=== PATIENT | male | born 1955 | race Caucasian/White ===

== ENCOUNTER → 2019-05-03 09:58 | Outpatient (CLI) | payer OTHER, SELFPAY ==
[2019-05-03 11:02] LABS: BUN Creatinine Ratio 17.5 (6-22); Blood Urea Nitrogen 14 mg/dL (9-20); Calcium 9.5 mg/dL (8.4-10.2); Carbon Dioxide 31 mmol/L (22-32); Chloride 101 mmol/L (98-107); Cholesterol 163 mg/dL (140-199); Estimated Glomerular Filt Rate > 60.0 mL/min (>60); Glucose 103 mg/dL (80-110); HDL Cholesterol 49 mg/dL (40-60); HEMOLYSIS < 15 (0-50); LDL Cholesterol Calculated 101 mg/dL (<100); Potassium 4.5 mmol/L (3.4-5.1); Sodium 139 mmol/L (137-145); Triglycerides 65 mg/dL (35-150)
== END ==
PROVIDERS: Visit Provider Internal Medicine Interventional Cardiology
DX: I25.10 Atherosclerotic heart disease of native coronary artery without angina pectoris (principal)
CPT/HCPCS: 36415; 80048; 80061

== ENCOUNTER → 2019-08-22 07:54 | Outpatient (CLI) | payer OTHER, SELFPAY ==
--- NOTE | 2019-08-22 07:55 | DI.US.S_ITS ---
PROCEDURE: US AXILLARY ONLY INDICATIONS: INTERMITTENT LEFT AXILLARY PAIN TECHNIQUE: Real-time focused scanning was performed of the left axilla, with image documentation. COMPARISON: None. FINDINGS: Ultrasound evaluation of the left axilla demonstrates no discrete cystic or solid mass in the area of pain. No abnormal enlarged lymph nodes identified. IMPRESSION: 1. No discrete mass or evidence of lymphadenopathy in the left axilla. Dictated by: Danish Chew M.D. on 08/22/2019 at 16:29 Approved by: Danish Chew M.D. on 08/22/2019 at 16:31
== END ==
PROVIDERS: PCP Nurse Practitioner; Referring Provider Nurse Practitioner; Visit Provider Nurse Practitioner
DX: M79.622 Pain in left upper arm (principal)
CPT/HCPCS: 76882

== ENCOUNTER → 2019-09-14 08:08 | Outpatient (CLI) | payer OTHER, SELFPAY ==
[2019-09-14 08:43] LABS: Add Manual Diff / Slide Review NO; Basophils Absolute Auto 0 /uL (0-100); Basophils Percent Auto 0.6 % (0-2); Eosinophils Absolute Auto 100 /uL (0-450); Eosinophils Percent Auto 1.1 % (2-4); Hematocrit 43.2 % (41-53); Hemoglobin 14.5 g/dL (13.5-17.5); Lymphocytes Absolute Auto 1700 /uL (1100-4500); Lymphocytes Percent Auto 33.9 % (25-40); Mean Corpuscular HGB Conc 33.6 % (30-36); Mean Corpuscular Hemoglobin 30.3 PG (26-34); Mean Corpuscular Volume 90.1 fL (80-100); Monocytes Absolute Auto 500 /uL (0-900); Monocytes Percent Auto 9.8 % (3-14); Neutrophils Absolute Auto 2800 /uL (1500-7000); Neutrophils Percent Auto 54.6 % (50-75); Platelet Count 188 X10^3/uL (150-400); Red Blood Cell Count 4.79 X10^6/uL (4.5-5.9); Red Cell Distribution Width 13.5 % (11.6-14.8); White Blood Cell Count 5.1 X10^3/uL (4.5-11.0)
[2019-09-14 09:45] LABS: Free T3, Triiodothyronine Free 3.24 pg/mL (2.77-5.27); Free T4, Direct Thyroxine 1.01 ng/dL (0.78-2.19)
[2019-09-14 09:57] LABS: Prostate Specific Antigen Scrn 1.58 ng/mL (0.1-4.0)
== END ==
PROVIDERS: PCP Nurse Practitioner; Referring Provider Nurse Practitioner; Visit Provider Nurse Practitioner
DX: Z00.00 Encounter for general adult medical examination without abnormal findings (principal); E78.5 Hyperlipidemia, unspecified; F41.9 Anxiety disorder, unspecified; I48.91 Unspecified atrial fibrillation
CPT/HCPCS: 36415; 84439; 84443; 84481; 85025; G0103

== ENCOUNTER 2019-09-16 10:16 | Emergency (ER) | payer OTHER, SELFPAY ==
[2019-09-16] VITALS (9 sets, daily range): BP systolic 97–168; BP diastolic 53–92; PULSE 60–69; RESP 12–20; TEMP 36.7; O2SAT 94–100
--- NOTE | 2019-09-16 10:28 | DI.RAD.S_ITS ---
PROCEDURE: XR CHEST 1V INDICATIONS: chest pain TECHNIQUE: One view of the chest was acquired. COMPARISON: None. FINDINGS: Surgical changes and devices: None. Lungs and pleura: Lungs are clear. No pleural effusions or pneumothorax. Mediastinum: Mediastinal contours appear normal. Heart size is normal. Bones and chest wall: No suspicious bony lesions. Overlying soft tissues appear unremarkable. IMPRESSION: Normal for age, source of current chest pain symptoms is not seen. Dictated by: Leandro Jorge M.D. on 09/16/2019 at 11:26 Approved by: Leandro Jorge M.D. on 09/16/2019 at 11:26
[2019-09-16 10:36] LABS: Add Manual Diff / Slide Review NO; Basophils Absolute Auto 0 /uL (0-100); Basophils Percent Auto 0.8 % (0-2); Eosinophils Absolute Auto 0 /uL (0-450); Eosinophils Percent Auto 0.5 % (2-4); Hematocrit 46.1 % (41-53); Hemoglobin 15.5 g/dL (13.5-17.5); Lymphocytes Absolute Auto 1300 /uL (1100-4500); Mean Corpuscular HGB Conc 33.7 % (30-36); Mean Corpuscular Hemoglobin 30.4 PG (26-34); Mean Corpuscular Volume 90.2 fL (80-100); Monocytes Absolute Auto 600 /uL (0-900); Monocytes Percent Auto 11.7 % (3-14); Neutrophils Absolute Auto 3200 /uL (1500-7000); Platelet Count 206 X10^3/uL (150-400); Red Blood Cell Count 5.11 X10^6/uL (4.5-5.9); Red Cell Distribution Width 13.3 % (11.6-14.8); White Blood Cell Count 5.2 X10^3/uL (4.5-11.0)
--- NOTE | 2019-09-16 10:37 | ED_ITS ---
HPI - SOB/Dyspnea <Betito MartinezDO sukhwinder - Last Filed: 09/17/19 07:02> General Chief Complaint: Shortness of Breath/Dyspnea Stated Complaint: cardiac issue Time Seen by Provider: 09/16/19 10:21 Source: patient Mode of arrival: Ambulatory Limitations: no limitations History of Present Illness HPI Narrative: 64-year-old male nonsmoker with history of hypertension, hyperlipidemia and coronary artery disease status post coronary stenting in 2014. He has had no provocative testing since 2014. He also had a tachyarrhythmia 0 and received ablation in 2015 or 2016. The majority of his care was obtained in [facility] he recently moved here and has established with [facility]. Patient presents today because of 3 weeks of worsening exercise intolerance and exertional fatigue. He has had some episodes of tingling type anterior chest pain that are not provoked by any exertion. He denies cardiac equivalent such as dizziness, weakness, lightheadedness nor nausea, vomiting or unexplained diaphoresis. He has had no recent travel, history of cancer or blood clot. He routinely exercises and normally swims 5 times per week but for the past few weeks he has had increasing inability to complete his regimen and the worst day was yesterday and his visit today. Onset (ago): week(s) Severity: moderate Consistency/Duration: intermittent Relieving factors: rest Exacerbating factors: exertion Known history of: other Related Data Home oxygen amount: none Home Medications Medication Instructions Recorded Confirmed aspirin 81 mg tablet,delayed 81 mg PO DAILY 07/22/19 09/16/19 release atorvastatin 40 mg tablet 40 mg PO DAILY 07/22/19 09/16/19 coenzyme Q10 200 mg capsule 200 mg PO DAILY 07/22/19 09/16/19 metoprolol succinate 25 mg 25 mg PO DAILY 07/22/19 09/16/19 tablet,extended release 24 hr L-Carnitine 1,000 mg PO DAILY 09/16/19 09/16/19 Previous Rx's Medication Instructions Recorded diph,pertuss(acel),tet vac(PF) 0.5 ml IM ONCE #0.5 ml 08/18/19 varicella-zoster [id number] (PF) 50 0.5 ml IM ONCE #1 each 08/18/19 mcg/0.5 mL IM susp, kit Allergies Allergy/AdvReac Type Severity Reaction Status Date / Time No Known Drug Allergies Allergy Verified 09/16/19 10:28 Review of Systems <Betito Esquivel DO - Last Filed: 09/17/19 07:02> Constitutional Constitutional: Denies chills, Denies fatigue, Denies fever(s), Denies frequent falls, Denies lethargy and Denies weakness Eyes Eyes: Denies change in vision, Denies eye discharge, Denies irritation and Denies loss of vision ENT Ears, Nose, Mouth, and Throat: Denies change in voice, Denies dizziness, Denies neck pain, Denies sore throat and Denies throat swelling Cardiovascular Cardiovascular: Denies chest pain, Denies irregular heart rhythm, Denies lightheadedness, Denies palpitations, Denies dyspnea, Denies dyspnea on exertion and Denies orthopnea Comments: Exertional fatigue Respiratory Respiratory: Denies cough, Denies dyspnea, Denies dyspnea on exertion and Denies wheezing Gastrointestinal Gastrointestinal: Denies abdominal pain, Denies change in bowel habits, Denies diarrhea, Denies nausea and Denies vomiting Genitourinary Genitourinary: Denies hematuria, Denies flank pain, Denies urinary incontinence and Denies urinary urgency Musculoskeletal Musculoskeletal: Denies back pain, Denies muscle weakness, Denies neck pain, Denies numbness and Denies tingling Integumentary/Breasts Skin/Breast: Denies pruritus, Denies erythema, Denies rash and Denies wounds Neurologic Neurologic: Denies behavioral changes, Denies confusion, Denies dizziness, D enies frequent falls, Denies loss of vision, Denies numbness, Denies tingling and Denies weakness Psychiatric Psychiatric: Denies anxiety, Denies behavioral changes, Denies confusion, Denies depression, Denies homicidal ideation and Denies suicidal ideation Endocrine Endocrine: Denies fatigue, Denies flushing and Denies palpitations Hematologic/Lymphatic Hematologic/Lymphatic: Denies easy bruising Allergic/Immunologic Allergic/Immunologic: Denies urticaria, Denies throat swelling and Denies wheezing Patient History <Betito Esquivel DO - Last Filed: 09/17/19 07:02> Medical History Atrial fibrillation (Chronic ~2016) Chicken pox (Resolved) Measles (Resolved) Myocardial infarction (Resolved ~2016) Surgical History Anesthesia (Resolved) History of cardiac radiofrequency ablation (Resolved ~06/10/17) History of heart artery stent (Resolved ~04/26/16) Family History Father History of heart disease Mother Cancer Sister Cancer Grandfather Cancer Grandfather History of heart disease Social History Smoking Status: Never smoker Smoking Status: Never smoker alcohol intake frequency: 0-2 drinks per day Substance Use Type: does not use Exam <Betito Esquivel DO - Last Filed: 09/17/19 07:02> Narrative Exam Narrative: GENERAL: [64] year old patient appears stated age. Well- nourished, well-developed patient, in mild distress. HEAD: Atraumatic. Normocephalic. EYES: Pupils equal round and reactive. Extraocular motions intact. No scleral icterus. No injection or drainage. ENT: Nose without bleeding, purulent drainage. Throat without erythema, tonsillar hypertrophy or exudate. Airway patent. NECK: Trachea midline. Non tender CARDIOVASCULAR: Regular rate and rhythm without murmurs, gallops, or rubs. RESPIRATORY: Clear to auscultation. Breath sounds equal bilaterally. No wheezes, rales, or rhonchi. GASTROINTESTINAL: Abdomen soft, non-tender, nondistended. EXTREMITIES: No edema or joint tenderness. BACK: Nontender without deformity or crepitance. No flank tenderness. NEURO: AOx3. SKIN: No rash or erythema of visible areas Initial Vital Signs Initial Vital Signs: Vital Signs Temperature 98.0 F 09/16/19 10:20 Pulse Rate 68 09/16/19 10:20 Respiratory Rate 18 09/16/19 10:20 Blood Pressure 168/92 H 09/16/19 10:20 Pulse Oximetry 100 09/16/19 10:20 <Jose D Thorpe DO - Last Filed: 09/16/19 13:01> Initial Vital Signs Initial Vital Signs: Vital Signs Temperature 98.0 F 09/16/19 10:20 Pulse Rate 68 09/16/19 10:20 Respiratory Rate 18 09/16/19 10:20 Blood Pressure 168/92 H 09/16/19 10:20 Pulse Oximetry 100 09/16/19 10:20 Course <Betito Esquivel, DO - Last Filed: 09/17/19 07:02> Orders Ordered: Discontinued Medications Nitroglycerin (Nitrostat) 0.4 mg SL [id number] PRN PRN Reason: Chest Pain Last Admin: 09/16/19 11:50 Dose: 0.4 mg Documented by: Admin: 09/16/19 11:43 Dose: 0.4 mg Documented by: Admin: 09/16/19 11:37 Dose: 0.4 mg Documented by: YENNY Consultations Consultation #1: Given the patient's concerning story for developing ischemia a call was placed to Cardiology at [facility] who shares this concern requests transfer given his presentation consistent with unstable angina. She states given normal troponin and nonischemic EKG that the patient does not need to be on heparin, requests discussion with hospitalist Call to hospitalist at [facility] awaiting call from hospitalist at [facility]. Transfer of care to Dr. Thorpe Vital Signs Vital signs: Vital Signs - 8 hr 09/16/19 10:20 09/16/19 11:30 09/16/19 11:37 Temperature 98.0 F Pulse Rate 68 62 62 Respiratory Rate 18 12 Blood Pressure 168/92 H 128/79 Blood Pressure [Left Arm] 128/79 Pulse Oximetry 100 96 09/16/19 11:43 09/16/19 11:50 09/16/19 12:00 Temperature Pulse Rate 69 65 66 Respiratory Rate 19 Blood Pressure 119/77 100/63 Blood Pressure [Left Arm] 99/53 L Pulse Oximetry 94 09/16/19 12:30 Temperature Pulse Rate 62 Respiratory Rate 15 Blood Pressure Blood Pressure [Left Arm] 105/64 Pulse Oximetry 94 <Jose D Thorpe DO - Last Filed: 09/16/19 13:01> Orders Ordered: Discontinued Medications Nitroglycerin (Nitrostat) 0.4 mg SL [id number] PRN PRN Reason: Chest Pain Last Admin: 09/16/19 11:50 Dose: 0.4 mg Documented by: Admin: 09/16/19 11:43 Dose: 0.4 mg Documented by: Admin: 09/16/19 11:37 Dose: 0.4 mg Documented by: [email or web address] Vital Signs Vital signs: Vital Signs - 8 hr 09/16/19 10:20 09/16/19 11:30 09/16/19 11:37 Temperature 98.0 F Pulse Rate 68 62 62 Respiratory Rate 18 12 Blood Pressure 168/92 H 128/79 Blood Pressure [Left Arm] 128/79 Pulse Oximetry 100 96 09/16/19 11:43 09/16/19 11:50 09/16/19 12:00 Temperature Pulse Rate 69 65 66 Respiratory Rate 19 Blood Pressure 119/77 100/63 Blood Pressure [Left Arm] 99/53 L Pulse Oximetry 94 09/16/19 12:30 Temperature Pulse Rate 62 Respiratory Rate 15 Blood Pressure Blood Pressure [Left Arm] 105/64 Pulse Oximetry 94 MDM - SOB/Dyspnea <Betito Esquivel DO - Last Filed: 09/17/19 07:02> Lab Data Result diagrams: 09/16/19 10:23 09/16/19 10:23 Labs: Lab Results 09/16/19 09/16/19 09/16/19 Range/Units 10:23 10:23 10:23 WBC 5.2 (4.5-11.0) X10^3/uL RBC 5.11 (4.5-5.9) X10^6/uL Hgb 15.5 (13.5-17.5) g/dL Hct 46.1 (41-53) % MCV 90.2 (80-100) fL MCH 30.4 (26-34) PG MCHC 33.7 (30-36) % RDW 13.3 (11.6-14.8) % Plt Count 206 (150-400) X10^3/uL Neut % (Auto) 62.0 (50-75) % Lymph % (Auto) 25.0 (25-40) % [place] % (Auto) 11.7 (3-14) % Eos % (Auto) 0.5 L (2-4) % Baso % (Auto) 0.8 (0-2) % Neut # (Auto) 3200 (6759-4194) /uL Lymph # (Auto) 1300 (5325-4076) /uL [place] # (Auto) 600 (0-900) /uL Eos # (Auto) 0 (0-450) /uL Baso # (Auto) 0 (0-100) /uL PT 12.9 H (10.1-12.7) SECONDS INR 1.1 (0.9-1.3) APTT 33 (26.4-36.2) SECONDS Sodium 139 (137-145) mmol/L Potassium 4.0 (3.4-5.1) mmol/L Chloride 103 (98-107) mmol/L Carbon Dioxide 27 (22-32) mmol/L BUN 18 (9-20) mg/dL Creatinine 0.80 (0.66-1.25) mg/dL Estimated GFR > 60.0 (>60) mL/min BUN/Creatinine Ratio 22.5 H (6-22) Glucose 100 (80-110) mg/dL Calcium 9.6 (8.4-10.2) mg/dL Magnesium 2.3 (1.6-2.3) mg/dL Total Bilirubin 1.3 (0.2-1.3) mg/dL AST 26 (17-59) IU/L ALT 27 (<50) IU/L Alkaline Phosphatase 94 (38-126) U/L Total Creatine Kinase 56 (55-170) U/L CK-MB (CK-2) TNP CK-MB (CK-2) Rel Index TNP Troponin I < 0.012 (0.01-0.034) ng/mL NT-Pro-B Natriuret Pep 27 (<125) pg/mL Total Protein 8.1 (6.3-8.2) g/dL Albumin 4.9 (3.5-5.0) g/dL Globulin 3.2 (1.7-4.1) g/dL Albumin/Globulin Ratio 1.5 (1.0-2.8) Lipase 200 (23-300) U/L ECG Data Attestation: I personally reviewed and interpreted this ECG as follows: Interpretation: EKG is normal sinus rhythm rate [ 92] and free of any signs of ischemia or ectopy. No ST segmental elevation or depression. No T wave inversions <Jose D Thorpe DO - Last Filed: 09/16/19 13:01> Lab Data Labs: Lab Results 09/16/19 09/16/19 09/16/19 Range/Units 10:23 10:23 10:23 WBC 5.2 (4.5-11.0) X10^3/uL RBC 5.11 (4.5-5.9) X10^6/uL Hgb 15.5 (13.5-17.5) g/dL Hct 46.1 (41-53) % MCV 90.2 (80-100) fL MCH 30.4 (26-34) PG MCHC 33.7 (30-36) % RDW 13.3 (11.6-14.8) % Plt Count 206 (150-400) X10^3/uL Neut % (Auto) 62.0 (50-75) % Lymph % (Auto) 25.0 (25-40) % [place] % (Auto) 11.7 (3-14) % Eos % (Auto) 0.5 L (2-4) % Baso % (Auto) 0.8 (0-2) % Neut # (Auto) 3200 (8034-1213) /uL Lymph # (Auto) 1300 (0453-8182) /uL [place] # (Auto) 600 (0-900) /uL Eos # (Auto) 0 (0-450) /uL Baso # (Auto) 0 (0-100) /uL PT 12.9 H (10.1-12.7) SECONDS INR 1.1 (0.9-1.3) APTT 33 (26.4-36.2) SECONDS Sodium 139 (137-145) mmol/L Potassium 4.0 (3.4-5.1) mmol/L Chloride 103 (98-107) mmol/L Carbon Dioxide 27 (22-32) mmol/L BUN 18 (9-20) mg/dL Creatinine 0.80 (0.66-1.25) mg/dL Estimated GFR > 60.0 (>60) mL/min BUN/Creatinine Ratio 22.5 H (6-22) Glucose 100 (80-110) mg/dL Calcium 9.6 (8.4-10.2) mg/dL Magnesium 2.3 (1.6-2.3) mg/dL Total Bilirubin 1.3 (0.2-1.3) mg/dL AST 26 (17-59) IU/L ALT 27 (<50) IU/L Alkaline Phosphatase 94 (38-126) U/L Total Creatine Kinase 56 (55-170) U/L CK-MB (CK-2) TNP CK-MB (CK-2) Rel Index TNP Troponin I < 0.012 (0.01-0.034) ng/mL NT-Pro-B Natriuret Pep 27 (<125) pg/mL Total Protein 8.1 (6.3-8.2) g/dL Albumin 4.9 (3.5-5.0) g/dL Globulin 3.2 (1.7-4.1) g/dL Albumin/Globulin Ratio 1.5 (1.0-2.8) Lipase 200 (23-300) U/L MDM Narrative Medical decision making narrative: Dr thorpe: Received turned over from Dr Esquivel. Reviewed patient's history and physical. Introduce myself to the patient. Discussed the case with Dr. Vega hospitalist at [facility] who accepts the patient in transfer per recommendations of cardiology. Discussed the transfer with the patient. Patient is stable for transport. Discharge Plan Departure Patient Disposition: [facility] Clinical Impression: Angina pectoris, unstable Discharge Date/Time: 09/16/19 14:35 Prescriptions: No Action atorvastatin 40 mg tablet 40 mg PO DAILY RF: 0 metoprolol succinate 25 mg tablet extended release 24 hr 25 mg PO DAILY RF: 0 aspirin [Adult Aspirin Regimen] 81 mg tablet,delayed release (DR/EC) 81 mg PO DAILY RF: 0 coenzyme Q10 200 mg capsule 200 mg PO DAILY RF: 0 Shingrix (PF) 50 mcg/0.5 mL suspension for reconstitution 0.5 ml IM ONCE Qty: 1 RF: 0 Adacel(Tdap Adolesn/Adult)(PF) 2 Lf-(2.5-5-3-5 mcg)-5Lf/0.5 mL suspension 0.5 ml IM ONCE Qty: 0.5 RF: 0 L-Carnitine 1,000 mg 1,000 mg PO DAILY RF: 0 Referrals: Rosa Mathews ARNP [Primary Care Provider] -
[2019-09-16 10:38] LABS: INR 1.1 (0.9-1.3); Prothrombin Time 12.9 SECONDS (10.1-12.7)
[2019-09-16 10:40] LABS: PTT Partial Thromboplastin Tim 33 SECONDS (26.4-36.2)
[2019-09-16 10:42] LABS: Alanine Aminotransferase 27 IU/L (<50); Albumin 4.9 g/dL (3.5-5.0); Albumin Globulin Ratio 1.5 (1.0-2.8); Alkaline Phosphatase 94 U/L (38-126); Aspartate Aminotransferase 26 IU/L (17-59); BUN Creatinine Ratio 22.5 (6-22); Bilirubin Total 1.3 mg/dL (0.2-1.3); Blood Urea Nitrogen 18 mg/dL (9-20); Calcium 9.6 mg/dL (8.4-10.2); Carbon Dioxide 27 mmol/L (22-32); Chloride 103 mmol/L (98-107); Creatine Kinase 56 U/L (55-170); Estimated Glomerular Filt Rate > 60.0 mL/min (>60); Globulin 3.2 g/dL (1.7-4.1); Glucose 100 mg/dL (80-110); HEMOLYSIS 18 (0-50); Lipase 200 U/L (23-300); Magnesium 2.3 mg/dL (1.6-2.3); Sodium 139 mmol/L (137-145); Total Protein 8.1 g/dL (6.3-8.2)
[2019-09-16 10:53] LABS: Troponin I < 0.012 ng/mL (0.01-0.034)
[2019-09-16 11:03] LABS: NT-proBNP (BNP-Adult 18+) 27 pg/mL (<125)
[2019-09-16] MEDS: NITROGLYCERIN 0.4 MG SL TAB SL ×3 (11:37→11:50)
--- NOTE | 2019-09-16 12:21 | PC.NURSE ---
Notified DR Esquivel chest pain not relieved by nitro, no new orders received..
--- NOTE | 2019-09-16 12:23 | PC.NURSE ---
Pt w/ progressive fatigue. Denies chest pain upon admission. No acute distress. [place]/warm/dry.
--- NOTE | 2019-09-16 14:33 | PC.NURSE ---
Chest pain has been at a 112 out of [address] Esquivel and Dr Thorpe are aware.
== END 2019-09-16 14:35 | disposition short-term general hospital (02) ==
PROVIDERS: Emergency Medicine; Emergency Provider Emergency Medicine; PCP Nurse Practitioner
DX: I25.110 Atherosclerotic heart disease of native coronary artery with unstable angina pectoris (principal); I10 Essential (primary) hypertension; E78.5 Hyperlipidemia, unspecified; Z95.5 Presence of coronary angioplasty implant and graft
CPT/HCPCS: 36415; 71045; 80053; 82550; 83690; 83735; 83880; 84484; 85025; 85610; 85730; 93005; 99285

== ENCOUNTER → 2020-11-27 09:01 | Outpatient (CLI) | payer OTHER, SELFPAY ==
[2020-11-27 10:27] LABS: Alanine Aminotransferase 23 IU/L (<50); Albumin 4.6 g/dL (3.5-5.0); Albumin Globulin Ratio 1.6 (1.0-2.8); Alkaline Phosphatase 103 U/L (38-126); Aspartate Aminotransferase 23 IU/L (17-59); Bilirubin Total 1.3 mg/dL (0.2-1.3); Blood Urea Nitrogen 17 mg/dL (9-20); Calcium 9.8 mg/dL (8.4-10.2); Carbon Dioxide 29 mmol/L (22-32); Chloride 100 mmol/L (98-107); Cholesterol 188 mg/dL (140-199); Estimated Glomerular Filt Rate > 60.0 mL/min (>60); Globulin 2.8 g/dL (1.7-4.1); Glucose 87 mg/dL (80-110); HDL Cholesterol 44 mg/dL (40-60); HEMOLYSIS < 15 (0-50); LDL Cholesterol Calculated 125 mg/dL (<100); Potassium 4.6 mmol/L (3.4-5.1); Sodium 139 mmol/L (137-145); Total Protein 7.4 g/dL (6.3-8.2); Triglycerides 93 mg/dL (35-150)
== END ==
PROVIDERS: PCP Nurse Practitioner; Referring Provider Internal Medicine; Visit Provider Internal Medicine
DX: I25.10 Atherosclerotic heart disease of native coronary artery without angina pectoris (principal); E78.2 Mixed hyperlipidemia
CPT/HCPCS: 36415; 80053; 80061

== ENCOUNTER → 2020-11-30 16:33 | Outpatient (CLI) | payer OTHER, SELFPAY ==
--- NOTE | 2020-11-30 16:35 | DI.RAD.S_ITS ---
PROCEDURE: XR CHEST 2V INDICATIONS: chest pain TECHNIQUE: 2 views of the chest were acquired. COMPARISON: [facility], , XR CHEST 1V, 09/16/2019, 11:00. FINDINGS: Surgical changes and devices: None. Lungs and pleura: Lungs are clear. The lungs are hyperexpanded. No pleural effusions or pneumothorax. Mediastinum: Mediastinal contours are normal. Heart size is normal. Bones and chest wall: No suspicious bony abnormalities. Soft tissues appear unremarkable. IMPRESSION: No acute cardiopulmonary abnormality Dictated by: Abdiel Edmond M.D. on 11/30/2020 at 21:09 Approved by: Abdiel Edmond M.D. on 11/30/2020 at 21:09
[2020-11-30 17:12] LABS: Appearance Urine UA CLEAR; Bilirubin Urine UA NEGATIVE (NEGATIVE); Color Urine UA YELLOW; Glucose Urine UA NEGATIVE (Negative); Ketones Urine UA NEGATIVE (NEGATIVE); Leukocyte Esterase Urine UA NEGATIVE (NEGATIVE); Nitrite Urine UA NEGATIVE (Negative); Occult Blood Urine UA TRACE-LYSED (Negative); Protein Urine UA NEGATIVE (Negative); Specific Gravity Urine UA 1.015 (1.000-1.035); Urobilinogen Urine UA 0.2 E.U./dL (0.2)
[2020-11-30 17:23] LABS: Add Manual Diff / Slide Review NO; Basophils Absolute Auto 0 /uL (0-100); Basophils Percent Auto 0.7 % (0-2); Eosinophils Absolute Auto 100 /uL (0-450); Eosinophils Percent Auto 1.1 % (2-4); Hematocrit 43.1 % (41-53); Hemoglobin 14.7 g/dL (13.5-17.5); Lymphocytes Absolute Auto 1700 /uL (1100-4500); Lymphocytes Percent Auto 25.8 % (25-40); Mean Corpuscular Hemoglobin 30.6 PG (26-34); Monocytes Absolute Auto 900 /uL (0-900); Monocytes Percent Auto 13.5 % (3-14); Neutrophils Absolute Auto 3900 /uL (1500-7000); Neutrophils Percent Auto 58.9 % (50-75); Platelet Count 186 X10^3/uL (150-400); Red Blood Cell Count 4.79 X10^6/uL (4.5-5.9); Red Cell Distribution Width 13.3 % (11.6-14.8); White Blood Cell Count 6.6 X10^3/uL (4.5-11.0)
[2020-11-30 17:44] LABS: Free T4, Direct Thyroxine 1.15 ng/dL (0.78-2.19)
[2020-11-30 17:57] LABS: Prostate Specific Antigen 2.37 ng/mL (0.10-4.00)
[2020-11-30 17:58] LABS: Thyroid Stimulating Hormone 2.61 uIU/mL (0.47-4.68)
== END ==
PROVIDERS: PCP Nurse Practitioner; Referring Provider Registered Nurse; Visit Provider Registered Nurse
DX: R07.9 Chest pain, unspecified (principal); N41.1 Chronic prostatitis; R53.83 Other fatigue
CPT/HCPCS: 36415; 71046; 81003; 84153; 84439; 84443; 85025

== ENCOUNTER → 2021-05-31 12:37 | Outpatient (CLI) | payer OTHER, SELFPAY ==
[2021-05-31] MEDS: COVID-19 VACC #3, MRNA(MOD) 50 MCG/0.25 ML VIAL IM (12:42)
== END ==
PROVIDERS: PCP Nurse Practitioner; Visit Provider Internal Medicine
DX: Z23 Encounter for immunization (principal)
CPT/HCPCS: 0013A; 91301

== ENCOUNTER → 2021-11-08 08:34 | Outpatient (CLI) | payer OTHER, SELFPAY ==
[2021-11-08 10:26] LABS: Alanine Aminotransferase 28 IU/L (<50); Albumin 4.5 g/dL (3.5-5.0); Albumin Globulin Ratio 1.8 (1.0-2.8); Alkaline Phosphatase 72 U/L (38-126); Aspartate Aminotransferase 25 IU/L (17-59); BUN Creatinine Ratio 24.3 (6-22); Bilirubin Total 0.6 mg/dL (0.2-1.3); Blood Urea Nitrogen 18 mg/dL (9-20); Carbon Dioxide 29 mmol/L (22-32); Chloride 103 mmol/L (98-107); Cholesterol 146 mg/dL (140-199); Estimated Glomerular Filt Rate > 60 mL/min (>60); Globulin 2.5 g/dL (1.7-4.1); Glucose 94 mg/dL (80-110); HDL Cholesterol 44 mg/dL (40-60); HEMOLYSIS < 15 (0-50); LDL Cholesterol Calculated 89 mg/dL (<100); Potassium 4.8 mmol/L (3.4-5.1); Sodium 140 mmol/L (137-145); Triglycerides 64 mg/dL (35-150)
== END ==
PROVIDERS: PCP Nurse Practitioner; Referring Provider Internal Medicine; Visit Provider Internal Medicine
DX: I25.10 Atherosclerotic heart disease of native coronary artery without angina pectoris (principal)
CPT/HCPCS: 36415; 80053; 80061

== ENCOUNTER → 2022-01-14 08:02 | Outpatient (CLI) | payer OTHER, SELFPAY ==
[2022-01-14 09:47] LABS: Hematocrit 39.2 % (41-53); Hemoglobin 13.5 g/dL (13.5-17.5); Mean Corpuscular HGB Conc 34.5 % (30-36); Mean Corpuscular Hemoglobin 30.5 PG (26-34); Mean Corpuscular Volume 88.5 fL (80-100); Platelet Count 176 X10^3/uL (150-400); Red Blood Cell Count 4.43 X10^6/uL (4.5-5.9); Red Cell Distribution Width 13.4 % (11.6-14.8); White Blood Cell Count 4.9 X10^3/uL (4.5-11.0)
[2022-01-14 10:09] LABS: Anisocytosis 1+; Neutrophils Absolute Manual 2352 /uL (3000-5900); Total Cells Counted 100
[2022-01-14 10:20] LABS: Alanine Aminotransferase 47 IU/L (<50); Albumin 4.1 g/dL (3.5-5.0); Albumin Globulin Ratio 1.5 (1.0-2.8); Alkaline Phosphatase 58 U/L (38-126); Aspartate Aminotransferase 38 IU/L (17-59); BUN Creatinine Ratio 31.5 (6-22); Bilirubin Total 0.5 mg/dL (0.2-1.3); Blood Urea Nitrogen 23 mg/dL (9-20); Calcium 8.5 mg/dL (8.4-10.2); Carbon Dioxide 26 mmol/L (22-32); Chloride 106 mmol/L (98-107); Cholesterol 152 mg/dL (140-199); Estimated Glomerular Filt Rate > 60 mL/min (>60); Globulin 2.7 g/dL (1.7-4.1); Glucose 89 mg/dL (80-110); HDL Cholesterol 45 mg/dL (40-60); HEMOLYSIS < 15 (0-50); LDL Cholesterol Calculated 96 mg/dL (<100); Potassium 4.3 mmol/L (3.4-5.1); Sodium 139 mmol/L (137-145); Total Protein 6.8 g/dL (6.3-8.2); Triglycerides 57 mg/dL (35-150)
[2022-01-14 10:36] LABS: Free T3, Triiodothyronine Free 3.01 pg/mL (2.77-5.27); Free T4, Direct Thyroxine 0.83 ng/dL (0.78-2.19)
[2022-01-14 10:49] LABS: Thyroid Stimulating Hormone 2.59 uIU/mL (0.47-4.68)
== END ==
PROVIDERS: PCP Nurse Practitioner; Referring Provider Internal Medicine; Visit Provider Internal Medicine
DX: I25.10 Atherosclerotic heart disease of native coronary artery without angina pectoris (principal); E78.2 Mixed hyperlipidemia; F41.8 Other specified anxiety disorders; I48.91 Unspecified atrial fibrillation; R53.83 Other fatigue; Z00.00 Encounter for general adult medical examination without abnormal findings; Z79.899 Other long term (current) drug therapy
CPT/HCPCS: 36415; 80053; 80061; 84153; 84439; 84443; 84481; 85025

== ENCOUNTER → 2022-03-03 07:53 | Outpatient (CLI) | payer OTHER, SELFPAY ==
[2022-03-03 09:06] LABS: Cholesterol 118 mg/dL (140-199); HDL Cholesterol 33 mg/dL (40-60); LDL Cholesterol Calculated 72 mg/dL (<100); Triglycerides 64 mg/dL (35-150)
== END ==
PROVIDERS: PCP Nurse Practitioner; Referring Provider Internal Medicine; Visit Provider Internal Medicine
DX: E78.2 Mixed hyperlipidemia (principal)
CPT/HCPCS: 36415; 80061

== ENCOUNTER 2023-01-18 04:13 | Emergency (ER) | payer MEDICARE, OTHER, SELFPAY ==
[2023-01-18] VITALS (8 sets, daily range): BP systolic 112–161; BP diastolic 56–96; PULSE 64–69; RESP 13–26; TEMP 36.7; O2SAT 93–98; BMI 23.2
--- NOTE | 2023-01-18 04:18 | ED_ITS ---
HPI - General Adult <Betito Esquivel - Last Filed: 01/20/23 07:39> General Chief complaint: Abdominal Pain Stated complaint: RLQ abd pain w/ nausea Time Seen by Provider: 01/18/23 04:16 History of Present Illness HPI narrative: 67-year-old male nonsmoker with history of kidney stones, hyperlipidemia, atrial fibrillation, coronary artery disease presents by EMS for evaluation of sudden- onset right lower quadrant pain with radiation to his back. He states the pain was sharp and stabbing and unrelenting, waking him up a few hours before arrival. He states that it was relatively persistent but seemed to intensify in waves. He denies the ability to find any position of comfort and states there is no obvious provocation or palliation. He admits to some nausea and vomiting. He was given fentanyl and Zofran by EMS and feels much better on his arrival. He denies any diarrhea but states he has had some constipation lately, stating that he would eaten some cheese which can do this. He denies any dysuria, frequency or urgency. Related Data Home Medications Medication Instructions Recorded Confirmed aspirin 81 mg tablet,delayed 81 mg PO DAILY 07/22/19 12/24/21 release (Adult Aspirin Regimen) coenzyme Q10 200 mg capsule 200 mg PO DAILY 07/22/19 12/24/21 L-Carnitine 1,000 mg PO DAILY 09/16/19 12/24/21 cholecalciferol (vitamin D3) 250 250 mcg PO DAILY 01/09/21 12/24/21 mcg (10,000 unit) capsule melatonin 10 mg capsule 10 mg PO TID 01/09/21 12/24/21 tumeric 1,500 mg PO .qd 01/09/21 12/24/21 vitamin K2 100 mcg capsule 100 mcg PO DAILY 01/09/21 12/24/21 rosuvastatin 40 mg tablet (Crestor) 40 mg PO DAILY 12/24/21 12/24/21 ezetimibe 10 mg tablet 10 mg PO DAILY Get LDL under 70 06/23/22 06/23/22 Previous Rx's Medication Instructions Recorded citalopram 20 mg tablet 20 mg PO DAILY #90 tabs 09/03/22 metoprolol succinate 25 mg 25 mg PO DAILY #90 tabs 09/03/22 tablet,extended release 24 hr ondansetron 4 mg disintegrating 4 mg PO Q6H PRN nausea and 01/18/23 tablet vomiting #14 tabs tamsulosin 0.4 mg capsule (Flomax) 0.4 mg PO DAILY #30 caps 01/18/23 hydrocodone 5 mg-acetaminophen 325 2 tab PO Q6H PRN pain #20 tabs 01/19/23 mg tablet Allergies Allergy/AdvReac Type Severity Reaction Status Date / Time No Known Drug Allergies Allergy Verified 06/23/22 08:54 Review of Systems <Betito Esquivel DO - Last Filed: 01/20/23 07:39> Review of Systems Narrative: GENERAL: Denies chills, fatigue, malaise, fever, sweats. HEENT: Denies sinus pain, ear pain, sore throat, difficulty swallowing, dizziness. RESPIRATORY: Denies dyspnea, cough, wheezing, hemoptysis, sputum. CARDIOVASCULAR: Denies chest pain, palpitations, orthopnea, edema, GASTROINTESTINAL: See HPI : Denies dysuria, frequency, incontinence, hematuria, urinary retention. MUSCULOSKELETAL: denies weakness, joint pain, or bony pain SKIN: Denies rash, skin lesions, or other NEUROLOGIC: Denies weakness, headache, numbness, change in speech, confusion, seizures, incoordination. PSYCHIATRIC: No concerning psychosocial issues. 12 point review of systems is negative except for those stated above Patient History <Betito Esquivel DO - Last Filed: 01/20/23 07:39> Medical History Anxiety Atrial fibrillation (~2015) Chest pain Chest pain Chicken pox Depression with anxiety Fatigue Measles Mixed hypercholesterolemia and hypertriglyceridemia Myocardial infarction (~2015) Paresthesia of both feet Surgical History Anesthesia History of cardiac radiofrequency ablation (~06/10/17) History of heart artery stent (~04/26/16) Family History Father History of heart disease Mother Cancer Sister Cancer Grandfather Cancer Grandfather History of heart disease Social History Smoking Status: Never smoker Smoking Status: Never smoker alcohol intake frequency: 0-2 drinks per day Substance Use Type: does not use Exam <DO Susana Santamaria Last Filed: 01/20/23 07:39> Narrative Exam Narrative: GENERAL: [67] year old patient appears stated age. Well-developed patient, in mild distress. HEAD: Atraumatic. Normocephalic. EYES: Pupils equal round and reactive. Extraocular motions intact. No scleral icterus. No injection or drainage. ENT: Nose without bleeding, purulent drainage. Throat without erythema, tonsillar hypertrophy or exudate. Airway patent. NECK: Trachea midline. Non tender CARDIOVASCULAR: Regular rate and rhythm without murmurs, gallops, or rubs. RESPIRATORY: Clear to auscultation. Breath sounds equal bilaterally. No wheezes, rales, or rhonchi. GASTROINTESTINAL: Abdomen soft, non-tender, nondistended. EXTREMITIES: No edema or joint tenderness. BACK: Nontender without deformity or crepitance. No flank tenderness. NEURO: AOx3. SKIN: No rash or erythema of visible areas Initial Vital Signs Initial Vital Signs: Vital Signs Temperature 98.1 F 01/18/23 04:17 Pulse Rate 67 01/18/23 04:17 Respiratory Rate 18 01/18/23 04:17 Blood Pressure 161/96 H 01/18/23 04:17 Pulse Oximetry 94 01/18/23 04:17 Oxygen Delivery Method Room Air 01/18/23 04:17 <Jose D Thorpe DO - Last Filed: 01/18/23 07:34> Initial Vital Signs Initial Vital Signs: Vital Signs Temperature 98.1 F 01/18/23 04:17 Pulse Rate 67 01/18/23 04:17 Respiratory Rate 18 01/18/23 04:17 Blood Pressure 161/96 H 01/18/23 04:17 Pulse Oximetry 94 01/18/23 04:17 Oxygen Delivery Method Room Air 01/18/23 04:17 Course <Betito Esquivel DO - Last Filed: 01/20/23 07:39> Orders Ordered: Discontinued Medications Hydrocodone Bitart/Acetaminophen (Hydrocodone/Acet 5/325 Prepack) 1 bottle MISC SEEINSTR ONE Stop: 01/18/23 07:49 Last Admin: 01/18/23 07:54 Dose: 1 bottle Documented By: KAYLAN Hydrocodone Bitart/Acetaminophen (Hydrocodone/Acet 5/325 Tablet) 1 tab PO NOW ONE Stop: 01/18/23 07:49 Last Admin: 01/18/23 07:54 Dose: 1 tab Documented By: KAYLAN Sodium Chloride (Normal Saline 0.9%) 1,000 mls @ 1,000 mls/hr IV BOLUS ONE Stop: 01/18/23 05:15 Last Infusion: 01/18/23 05:33 Dose: 0 mls/hr Documented By: Admin: 01/18/23 04:32 Dose: 1,000 mls/hr Documented By: CARLTON Sodium Chloride (Normal Saline 0.9%) 1,000 mls @ 1,000 mls/hr IV BOLUS ONE Stop: 01/18/23 05:37 Last Infusion: 01/18/23 06:15 Dose: 0 mls/hr Documented By: Admin: 01/18/23 05:15 Dose: 1,000 mls/hr Documented By: CARLTON Lidocaine HCl 6 ml/ Sodium (Chloride) 56 mls @ 336 mls/hr IV NOW ONE Stop: 01/18/23 05:22 Last Infusion: 01/18/23 05:45 Dose: 0 mls/hr Documented By: Admin: 01/18/23 05:34 Dose: 336 mls/hr Documented By: CARLTON Ketorolac Tromethamine (Ketorolac 30 Mg/Ml Vial) 15 mg IV NOW ONE Stop: 01/18/23 05:10 Last Admin: 01/18/23 05:14 Dose: 15 mg Documented By: EPIFANIO Lidocaine HCl (Lidocaine 2% (Glydo) 6 Ml Gel) 6 ml TOP NOW ONE Stop: 01/18/23 05:10 Last Admin: 01/18/23 05:15 Dose: 6 ml Documented By: EPIFANIO Reevaluation(s) Reevaluation #1: Patient experiencing significant relief after above-stated therapies Vital Signs Vital signs: Vital Signs - 8 hr 01/18/23 04:17 01/18/23 04:30 01/18/23 04:30 Temperature 98.1 F Pulse Rate 67 64 Respiratory Rate 18 Blood Pressure 161/96 H 146/85 H Pulse Oximetry 94 Oxygen Delivery Method Room Air Oxygen Flow Rate 01/18/23 05:00 01/18/23 05:30 01/18/23 05:30 Temperature Pulse Rate 69 68 Respiratory Rate 19 Blood Pressure 148/75 H Pulse Oximetry 96 95 Oxygen Delivery Method Nasal Cannula Nasal Cannula Oxygen Flow Rate 2 2 01/18/23 06:00 01/18/23 06:00 01/18/23 06:30 Temperature Pulse Rate 69 Respiratory Rate 19 Blood Pressure 112/68 113/59 L Pulse Oximetry 98 Oxygen Delivery Method Nasal Cannula Oxygen Flow Rate 2 01/18/23 06:30 01/18/23 07:00 01/18/23 07:00 Temperature Pulse Rate 66 67 Respiratory Rate 13 15 Blood Pressure 120/56 L Pulse Oximetry 95 95 Oxygen Delivery Method Nasal Cannula Nasal Cannula Oxygen Flow Rate 2 2 <Jose D Thorpe, DO - Last Filed: 01/18/23 07:34> Orders Ordered: Discontinued Medications Hydrocodone Bitart/Acetaminophen (Hydrocodone/Acet 5/325 Prepack) 1 bottle MISC SEEINSTR ONE Stop: 01/18/23 07:49 Last Admin: 01/18/23 07:54 Dose: 1 bottle Documented By: KAYLAN Hydrocodone Bitart/Acetaminophen (Hydrocodone/Acet 5/325 Tablet) 1 tab PO NOW ONE Stop: 01/18/23 07:49 Last Admin: 01/18/23 07:54 Dose: 1 tab Documented By: KAYLAN Sodium Chloride (Normal Saline 0.9%) 1,000 mls @ 1,000 mls/hr IV BOLUS ONE Stop: 01/18/23 05:15 Last Infusion: 01/18/23 05:33 Dose: 0 mls/hr Documented By: Admin: 01/18/23 04:32 Dose: 1,000 mls/hr Documented By: CARLTON Sodium Chloride (Normal Saline 0.9%) 1,000 mls @ 1,000 mls/hr IV BOLUS ONE Stop: 01/18/23 05:37 Last Infusion: 01/18/23 06:15 Dose: 0 mls/hr Documented By: Admin: 01/18/23 05:15 Dose: 1,000 mls/hr Documented By: CARLTON Lidocaine HCl 6 ml/ Sodium (Chloride) 56 mls @ 336 mls/hr IV NOW ONE Stop: 01/18/23 05:22 Last Infusion: 01/18/23 05:45 Dose: 0 mls/hr Documented By: Admin: 01/18/23 05:34 Dose: 336 mls/hr Documented By: CARLTON Ketorolac Tromethamine (Ketorolac 30 Mg/Ml Vial) 15 mg IV NOW ONE Stop: 01/18/23 05:10 Last Admin: 01/18/23 05:14 Dose: 15 mg Documented By: EPIFANIO Lidocaine HCl (Lidocaine 2% (Glydo) 6 Ml Gel) 6 ml TOP NOW ONE Stop: 01/18/23 05:10 Last Admin: 01/18/23 05:15 Dose: 6 ml Documented By: EPIFANIO Vital Signs Vital signs: Vital Signs - 8 hr 01/18/23 04:17 01/18/23 04:30 01/18/23 04:30 Temperature 98.1 F Pulse Rate 67 64 Respiratory Rate 18 Blood Pressure 161/96 H 146/85 H Pulse Oximetry 94 Oxygen Delivery Method Room Air Oxygen Flow Rate 01/18/23 05:00 01/18/23 05:30 01/18/23 05:30 Temperature Pulse Rate 69 68 Respiratory Rate 19 Blood Pressure 148/75 H Pulse Oximetry 96 95 Oxygen Delivery Method Nasal Cannula Nasal Cannula Oxygen Flow Rate 2 2 01/18/23 06:00 01/18/23 06:00 01/18/23 06:30 Temperature Pulse Rate 69 Respiratory Rate 19 Blood Pressure 112/68 113/59 L Pulse Oximetry 98 Oxygen Delivery Method Nasal Cannula Oxygen Flow Rate 2 01/18/23 06:30 01/18/23 07:00 01/18/23 07:00 Temperature Pulse Rate 66 67 Respiratory Rate 13 15 Blood Pressure 120/56 L Pulse Oximetry 95 95 Oxygen Delivery Method Nasal Cannula Nasal Cannula Oxygen Flow Rate 2 2 Medical Decision Making <Betito Esquivel, - Last Filed: 01/20/23 07:39> Lab Data 01/18/23 04:15 01/18/23 04:15 Labs: Lab Results 01/18/23 01/18/23 01/18/23 Range/Units 04:15 04:15 04:15 WBC 10.1 (4.5-11.0) X10^3/uL RBC 4.82 (4.5-5.9) X10^6/uL Hgb 14.6 (13.5-17.5) g/dL Hct 42.7 (41-53) % MCV 88.7 (80-100) fL MCH 30.2 (26-34) PG MCHC 34.1 (30-36) % RDW 13.1 (11.6-14.8) % Plt Count 195 (150-400) X10^3/uL Neut % (Auto) 64.2 (50-75) % Lymph % (Auto) 24.5 L (25-40) % [place] % (Auto) 8.5 (3-14) % Eos % (Auto) 1.4 L (2-4) % Baso % (Auto) 1.4 (0-2) % Neut # (Auto) 6500 (3535-1595) /uL Lymph # (Auto) 2500 (8259-7836) /uL [place] # (Auto) 900 (0-900) /uL Eos # (Auto) 100 (0-450) /uL Baso # (Auto) 100 (0-100) /uL Sodium 140 (137-145) mmol/L Potassium 3.3 L (3.4-5.1) mmol/L Chloride 100 (98-107) mmol/L Carbon Dioxide 27 (22-32) mmol/L BUN 27 H (9-20) mg/dL Creatinine 0.79 (0.66-1.25) mg/dL Estimated GFR > 60 (>60) mL/min BUN/Creatinine Ratio 34.2 H (6-22) Glucose 122 H (80-110) mg/dL Lactate 4.5 H* (0.7-2.1) mmol/L Calcium 8.8 (8.4-10.2) mg/dL Total Bilirubin 0.7 (0.2-1.3) mg/dL AST 33 (17-59) IU/L ALT 49 (<50) IU/L Alkaline Phosphatase 64 (38-126) U/L Total Protein 7.8 (6.3-8.2) g/dL Albumin 4.7 (3.5-5.0) g/dL Globulin 3.1 (1.7-4.1) g/dL Albumin/Globulin Ratio 1.5 (1.0-2.8) Lipase 454 H (23-300) U/L Urine RBC (0-5/HPF) Urine WBC (0-5/HPF) Ur Squamous Epith Cells (0-5/HPF) Urine Bacteria (None) Micro UA Comment 01/18/23 01/18/23 Range/Units 05:35 06:40 WBC (4.5-11.0) X10^3/uL RBC (4.5-5.9) X10^6/uL Hgb (13.5-17.5) g/dL Hct (41-53) % MCV (80-100) fL MCH (26-34) PG MCHC (30-36) % RDW (11.6-14.8) % Plt Count (150-400) X10^3/uL Neut % (Auto) (50-75) % Lymph % (Auto) (25-40) % [place] % (Auto) (3-14) % Eos % (Auto) (2-4) % Baso % (Auto) (0-2) % Neut # (Auto) (9314-5547) /uL Lymph # (Auto) (9247-3848) /uL [place] # (Auto) (0-900) /uL Eos # (Auto) (0-450) /uL Baso # (Auto) (0-100) /uL Sodium (137-145) mmol/L Potassium (3.4-5.1) mmol/L Chloride (98-107) mmol/L Carbon Dioxide (22-32) mmol/L BUN (9-20) mg/dL Creatinine (0.66-1.25) mg/dL Estimated GFR (>60) mL/min BUN/Creatinine Ratio (6-22) Glucose (80-110) mg/dL Lactate 1.0 (0.7-2.1) mmol/L Calcium (8.4-10.2) mg/dL Total Bilirubin (0.2-1.3) mg/dL AST (17-59) IU/L ALT (<50) IU/L Alkaline Phosphatase (38-126) U/L Total Protein (6.3-8.2) g/dL Albumin (3.5-5.0) g/dL Globulin (1.7-4.1) g/dL Albumin/Globulin Ratio (1.0-2.8) Lipase (23-300) U/L Urine RBC 10-30/hpf H (0-5/HPF) Urine WBC 0-1/hpf (0-5/HPF) Ur Squamous Epith Cells None seen (0-5/HPF) Urine Bacteria Few (2-10) H (None) Micro UA Comment * Urine Dip Bedside Urine Glucose Negative Bedside Urine Bilirubin - Negative Urine Specific [place] 1.015 Bedside Urine Occult Blood +++ Bedside Urine pH 6.0 Bedside Urine Protein - Negative Bedside Urine Urobilinogen - Negative Bedside Urine Nitrite - Negative Bedside Urine Leukocytes - Negative Esterase Point of care testing: Urine Dip Bedside Urine Glucose Negative Bedside Urine Bilirubin - Negative Urine Specific [place] 1.015 Bedside Urine Occult Blood +++ Bedside Urine pH 6.0 Bedside Urine Protein - Negative Bedside Urine Urobilinogen - Negative Bedside Urine Nitrite - Negative Bedside Urine Leukocytes - Negative Esterase Imaging Data CT scan - abdomen/pelvis: My Impression: 5 mm obstructing stone in the right proximal ureter ECG Data Interpretation: [0430] EKG is normal sinus rhythm rate [64 ] and free of any signs of ischemia or ectopy. No ST segmental elevation or depression. No T wave inversions MDM Narrative Medical decision making narrative: CC: 67 year old male awakened from sleep with right lower quadrant pain and radiation to his back Complicating co-morbidities: Age, prior kidney stones, coronary artery disease, AFib Data collected from: Patient Medical records reviewed: Prior notes reviewed in our EMR Differential considered, but not limited to: Kidney stone versus appendicitis versus bowel obstruction versus urinary tract infection versus Exam documented above, pertinent findings include: Mesenteric adenitis versus other heart rate regular, lungs clear, nonlabored breathing, no right lower quadrant right upper quadrant or right flank Lab Test results independently reviewed as above. Pertinent findings: Independently reviewed EKG as above Imaging studies independently reviewed: 5 mm obstructing stone in the right ureter with associated hydro Treatments: Fluids, Toradol, lidocaine drip Re-evaluations: Discussion: Disposition: see below, along with detailed discharge instructions that have been reviewed with patient as well as indications for ED re-evaluation and additional outpatient follow up <Jose D Thorpe DO - Last Filed: 01/18/23 07:34> Lab Data Labs: Lab Results 01/18/23 01/18/23 01/18/23 Range/Units 04:15 04:15 04:15 WBC 10.1 (4.5-11.0) X10^3/uL RBC 4.82 (4.5-5.9) X10^6/uL Hgb 14.6 (13.5-17.5) g/dL Hct 42.7 (41-53) % MCV 88.7 (80-100) fL MCH 30.2 (26-34) PG MCHC 34.1 (30-36) % RDW 13.1 (11.6-14.8) % Plt Count 195 (150-400) X10^3/uL Neut % (Auto) 64.2 (50-75) % Lymph % (Auto) 24.5 L (25-40) % [place] % (Auto) 8.5 (3-14) % Eos % (Auto) 1.4 L (2-4) % Baso % (Auto) 1.4 (0-2) % Neut # (Auto) 6500 (7118-1894) /uL Lymph # (Auto) 2500 (4251-5577) /uL [place] # (Auto) 900 (0-900) /uL Eos # (Auto) 100 (0-450) /uL Baso # (Auto) 100 (0-100) /uL Sodium 140 (137-145) mmol/L Potassium 3.3 L (3.4-5.1) mmol/L Chloride 100 (98-107) mmol/L Carbon Dioxide 27 (22-32) mmol/L BUN 27 H (9-20) mg/dL Creatinine 0.79 (0.66-1.25) mg/dL Estimated GFR > 60 (>60) mL/min BUN/Creatinine Ratio 34.2 H (6-22) Glucose 122 H (80-110) mg/dL Lactate 4.5 H* (0.7-2.1) mmol/L Calcium 8.8 (8.4-10.2) mg/dL Total Bilirubin 0.7 (0.2-1.3) mg/dL AST 33 (17-59) IU/L ALT 49 (<50) IU/L Alkaline Phosphatase 64 (38-126) U/L Total Protein 7.8 (6.3-8.2) g/dL Albumin 4.7 (3.5-5.0) g/dL Globulin 3.1 (1.7-4.1) g/dL Albumin/Globulin Ratio 1.5 (1.0-2.8) Lipase 454 H (23-300) U/L Urine RBC (0-5/HPF) Urine WBC (0-5/HPF) Ur Squamous Epith Cells (0-5/HPF) Urine Bacteria (None) Micro UA Comment 01/18/23 01/18/23 Range/Units 05:35 06:40 WBC (4.5-11.0) X10^3/uL RBC (4.5-5.9) X10^6/uL Hgb (13.5-17.5) g/dL Hct (41-53) % MCV (80-100) fL MCH (26-34) PG MCHC (30-36) % RDW (11.6-14.8) % Plt Count (150-400) X10^3/uL Neut % (Auto) (50-75) % Lymph % (Auto) (25-40) % [place] % (Auto) (3-14) % Eos % (Auto) (2-4) % Baso % (Auto) (0-2) % Neut # (Auto) (4137-7487) /uL Lymph # (Auto) (0780-2248) /uL [place] # (Auto) (0-900) /uL Eos # (Auto) (0-450) /uL Baso # (Auto) (0-100) /uL Sodium (137-145) mmol/L Potassium (3.4-5.1) mmol/L Chloride (98-107) mmol/L Carbon Dioxide (22-32) mmol/L BUN (9-20) mg/dL Creatinine (0.66-1.25) mg/dL Estimated GFR (>60) mL/min BUN/Creatinine Ratio (6-22) Glucose (80-110) mg/dL Lactate 1.0 (0.7-2.1) mmol/L Calcium (8.4-10.2) mg/dL Total Bilirubin (0.2-1.3) mg/dL AST (17-59) IU/L ALT (<50) IU/L Alkaline Phosphatase (38-126) U/L Total Protein (6.3-8.2) g/dL Albumin (3.5-5.0) g/dL Globulin (1.7-4.1) g/dL Albumin/Globulin Ratio (1.0-2.8) Lipase (23-300) U/L Urine RBC 10-30/hpf H (0-5/HPF) Urine WBC 0-1/hpf (0-5/HPF) Ur Squamous Epith Cells None seen (0-5/HPF) Urine Bacteria Few (2-10) H (None) Micro UA Comment * Urine Dip Bedside Urine Glucose Negative Bedside Urine Bilirubin - Negative Urine Specific [place] 1.015 Bedside Urine Occult Blood +++ Bedside Urine pH 6.0 Bedside Urine Protein - Negative Bedside Urine Urobilinogen - Negative Bedside Urine Nitrite - Negative Bedside Urine Leukocytes - Negative Esterase Point of care testing: Urine Dip Bedside Urine Glucose Negative Bedside Urine Bilirubin - Negative Urine Specific [place] 1.015 Bedside Urine Occult Blood +++ Bedside Urine pH 6.0 Bedside Urine Protein - Negative Bedside Urine Urobilinogen - Negative Bedside Urine Nitrite - Negative Bedside Urine Leukocytes - Negative Esterase MDM Narrative Medical decision making narrative: CC: 67 year old male awakened from sleep with right lower quadrant pain and radiation to his back Complicating co-morbidities: Age, prior kidney stones, coronary artery disease, AFib Data collected from: Patient Medical records reviewed: Prior notes reviewed in our EMR Differential considered, but not limited to: Kidney stone versus appendicitis versus bowel obstruction versus urinary tract infection versus Exam documented above, pertinent findings include: Mesenteric adenitis versus other heart rate regular, lungs clear, nonlabored breathing, no right lower quadrant right upper quadrant or right flank Lab Test results independently reviewed as above. Pertinent findings: Independently reviewed EKG as above Imaging studies independently reviewed: 5 mm obstructing stone in the right ureter with associated hydro Treatments: Fluids, Toradol, lidocaine drip Re-evaluations: Discussion: Disposition: see below, along with detailed discharge instructions that have been reviewed with patient as well as indications for ED re-evaluation and additional outpatient follow up Dr thorpe: Received turned over. Reviewed patient's history and physical. Has repeat lactate is normal. He does have a right-sided stone. Does not have a urinary tract infection. Does not have acute kidney injury. He is retaining urine. He states he does have chronic prostatitis. Had a discussion with him regarding the urinary catheter. We will leave the catheter in place and have him follow-up with urology. Sent home with symptom control. He was given return precautions. He expressed understanding and agreement. Discharge Plan Departure Patient Disposition: Home Clinical Impression: Kidney stone on right side, Acute urinary retention Instructions: How to Care for Your Conrad Catheter -- Male, DI for Kidney Stones, DI for Urinary Retention in Men Activity Restrictions/Additional Instructions: I do recommend that you contact the urologist of the number provided below. Use the pain medicine and nausea medicine as needed. Take the tamsulosin/Flomax on a daily basis. Return to the emergency department for new or worsening symptoms. Prescriptions: New ondansetron 4 mg tablet,disintegrating 4 mg PO Q6H PRN (Reason: nausea and vomiting) Qty: 14 0RF tamsulosin [Flomax] 0.4 mg capsule 0.4 mg PO DAILY Qty: 30 0RF No Action metoprolol succinate 25 mg tablet extended release 24 hr 25 mg PO DAILY Qty: 90 3RF citalopram 20 mg tablet 20 mg PO DAILY Qty: 90 3RF Rx Instructions: Take 1 tab every morning. hydrocodone-acetaminophen 5-325 mg tablet 2 tab PO Q6H PRN (Reason: pain) Qty: 20 0RF Rx Instructions: Limit as possible/as kidney stone aloows. Contact PCP if pain persists over the next 72 hours or if fever. aspirin [Adult Aspirin Regimen] 81 mg tablet,delayed release (DR/EC) 81 mg PO DAILY coenzyme Q10 200 mg capsule 200 mg PO DAILY vitamin K2 100 mcg capsule 100 mcg PO DAILY cholecalciferol (vitamin D3) 250 mcg (10,000 unit) capsule 250 mcg PO DAILY melatonin 10 mg capsule 10 mg PO TID Patient Comments: 8am, noon and 6pm tumeric 1,500 mg PO .qd ezetimibe 10 mg tablet 10 mg PO DAILY rosuvastatin [Crestor] 40 mg tablet 40 mg PO DAILY L-Carnitine 1,000 mg 1,000 mg PO DAILY Referrals: Rosa Mathews ARNP [Primary Care Provider] - Kory Jiménez MD [Physician] - Stand Alone Forms: Patient Portal/API
[2023-01-18] MEDS: SODIUM CHLORIDE 0.9% 1,000 ML 1000 ML IV ×2 (04:32→05:15)
[2023-01-18 04:35] LABS: Add Manual Diff / Slide Review NO; Alanine Aminotransferase 49 IU/L (<50); Albumin 4.7 g/dL (3.5-5.0); Albumin Globulin Ratio 1.5 (1.0-2.8); Alkaline Phosphatase 64 U/L (38-126); Aspartate Aminotransferase 33 IU/L (17-59); BUN Creatinine Ratio 34.2 (6-22); Basophils Absolute Auto 100 /uL (0-100); Basophils Percent Auto 1.4 % (0-2); Bilirubin Total 0.7 mg/dL (0.2-1.3); Blood Urea Nitrogen 27 mg/dL (9-20); Calcium 8.8 mg/dL (8.4-10.2); Carbon Dioxide 27 mmol/L (22-32); Chloride 100 mmol/L (98-107); Eosinophils Absolute Auto 100 /uL (0-450); Eosinophils Percent Auto 1.4 % (2-4); Estimated Glomerular Filt Rate > 60 mL/min (>60); Globulin 3.1 g/dL (1.7-4.1); Glucose 122 mg/dL (80-110); HEMOLYSIS < 15 (0-50); Hematocrit 42.7 % (41-53); Hemoglobin 14.6 g/dL (13.5-17.5); Lipase 454 U/L (23-300); Lymphocytes Absolute Auto 2500 /uL (1100-4500); Lymphocytes Percent Auto 24.5 % (25-40); Mean Corpuscular HGB Conc 34.1 % (30-36); Mean Corpuscular Hemoglobin 30.2 PG (26-34); Mean Corpuscular Volume 88.7 fL (80-100); Monocytes Absolute Auto 900 /uL (0-900); Monocytes Percent Auto 8.5 % (3-14); Neutrophils Absolute Auto 6500 /uL (1500-7000); Neutrophils Percent Auto 64.2 % (50-75); Platelet Count 195 X10^3/uL (150-400); Potassium 3.3 mmol/L (3.4-5.1); Red Blood Cell Count 4.82 X10^6/uL (4.5-5.9); Red Cell Distribution Width 13.1 % (11.6-14.8); Sodium 140 mmol/L (137-145); Total Protein 7.8 g/dL (6.3-8.2); White Blood Cell Count 10.1 X10^3/uL (4.5-11.0)
[2023-01-18 04:37] LABS: Lactate (Lactic Acid) 4.5 mmol/L (0.7-2.1)
--- NOTE | 2023-01-18 04:38 | DI.CT.S_ITS ---
PROCEDURE: CT ABDOMEN PELVIS W CON INDICATIONS: severe RLQ pain, critical lactate, afib TECHNIQUE: After the administration of intravenous contrast, axial sections acquired from the lung bases to the pubic symphysis. Coronal and sagittal reformats were performed. For radiation dose reduction, the following was used: automated exposure control, adjustment of mA and/or kV according to patient size. COMPARISON: None. FINDINGS: Image quality: Excellent. Lung bases: Lung bases are clear. Heart size is normal. Solid organs: Liver: The liver has no mass or intrahepatic biliary ductal dilatation. The portal vein and hepatic veins are patent. Biliary: Multiple gallstones are seen layering in the gallbladder. No wall thickening or pericholecystic fluid. Pancreas: The pancreas has no mass or ductal dilatation. There is no surrounding inflammation. Spleen: Normal size. There are no masses. Adrenals: No hypertrophy or nodules. Kidneys: The right kidney has mild hydronephrosis. There is a 4 mm kidney stone in the proximal ureter. Both kidneys have simple exophytic cysts. Peritoneum and bowel: Small hiatal hernia. The distal esophagus and stomach otherwise are normal. The small bowel has a normal caliber and appearance. The terminal ileum is normal. The large bowel has a normal caliber and appearance. The appendix is normal. No free fluid or air. Nodes and vessels: No retroperitoneal or mesenteric adenopathy by size criteria. Aorta and inferior vena cava are normal in size. Miscellaneous: No abdominal wall mass or hernia. PELVIS: Genitourinary: The bladder has no wall thickening or mass. No bladder calcifications. Fat containing right inguinal hernia. Bones: No suspicious bony lesions. No vertebral body compression fractures. IMPRESSION: IMPRESSION: 1. 4 mm kidney stone in the right proximal ureter with mild right hydronephrosis. 2. Cholelithiasis without evidence of acute cholecystitis. 3. Moderate sized hiatal hernia. Dictated by: Abdiel Edmond M.D. on 01/18/2023 at 8:04 Approved by: Abdiel Edmond M.D. on 01/18/2023 at 8:09
[2023-01-18] MEDS: KETOROLAC 30 MG/ML VIAL 15 MG IV (05:14)
[2023-01-18] MEDS: LIDOCAINE 2% (GLYDO) 6 ML GEL TOP (05:15)
[2023-01-18] MEDS: LIDOCAINE 2% (PF) 6 ML in SODIUM CHLORIDE 0.9% 50 ML 336 ML IV (05:34)
[2023-01-18 06:24] LABS: Reflexed Lactate in 2 Hours Y
[2023-01-18 06:38] LABS: Bacteria Urine Few (2-10); RBC Urine 10-30/HPF (0-5/HPF); Squamous Epithelial Cell Urine None Seen (0-5/HPF); WBC Urine 0-1/HPF (0-5/HPF)
[2023-01-18] MEDS: HYDROCODONE/ACET 5/325 PREPACK 1 BOTTLE MISC (07:54)
[2023-01-18] MEDS: HYDROCODONE/ACET 5/325 TABLET 1 TAB PO (07:54)
== END 2023-01-18 08:44 | disposition home or self-care (01) ==
PROVIDERS: Emergency Medicine; Emergency Provider Emergency Medicine; PCP Nurse Practitioner
DX: N20.0 Calculus of kidney (principal); N39.0 Urinary tract infection, site not specified; R11.2 Nausea with vomiting, unspecified; R03.0 Elevated blood-pressure reading, without diagnosis of hypertension
CPT/HCPCS: 36415; 74177; 80053; 81003; 81015; 83605; 83690; 85025; 87077; 87086; 87147; 87186; 93005; 93010; 96361; 96374; 96375; 99284; 99285; J1885; Q9967

== ENCOUNTER 2023-01-20 15:46 | Emergency (ER) | payer MEDICARE, OTHER, SELFPAY ==
[2023-01-20 15:49] VITALS: BP 142/72; PULSE 74; RESP 18; TEMP 36.6; O2SAT 97; BMI 23.2
--- NOTE | 2023-01-20 15:55 | ED.ABDPAIN ---
HPI - Abdominal Pain General Chief Complaint: Abdominal Pain Stated Complaint: kidney stone pain x3 days Time Seen by Provider: 01/20/23 15:55 Source: patient Mode of arrival: Ambulatory History of Present Illness HPI narrative: 67-year-old male with hypertension, atrial fibrillation and coronary artery disease as well as a known proximal 4 mm stone presents to the emergency department with his in the chief complaint that his pain is beginning to ramp up again. He was seen and evaluated here a few days ago in the emergency department and had extensive workup demonstrating an obstructive uropathy due to a proximal 4 mm stone. Additionally he was known to have a large stool burden and demonstrated urinary retention in the department and a Conrad catheter was placed. He was sent home with typical medications and was doing well until over the course of the day his pain began ramping up. He denies systemic complaints such as dizziness, weakness or lightheadedness. He is had no fever or chills nor nausea or vomiting. Related Data Home Medications Medication Instructions Recorded Confirmed aspirin 81 mg tablet,delayed 81 mg PO DAILY 07/22/19 12/24/21 release (Adult Aspirin Regimen) coenzyme Q10 200 mg capsule 200 mg PO DAILY 07/22/19 12/24/21 L-Carnitine 1,000 mg PO DAILY 09/16/19 12/24/21 cholecalciferol (vitamin D3) 250 250 mcg PO DAILY 01/09/21 12/24/21 mcg (10,000 unit) capsule melatonin 10 mg capsule 10 mg PO TID 01/09/21 12/24/21 tumeric 1,500 mg PO .qd 01/09/21 12/24/21 vitamin K2 100 mcg capsule 100 mcg PO DAILY 01/09/21 12/24/21 rosuvastatin 40 mg tablet (Crestor) 40 mg PO DAILY 12/24/21 12/24/21 ezetimibe 10 mg tablet 10 mg PO DAILY Get LDL under 70 06/23/22 06/23/22 Previous Rx's Medication Instructions Recorded citalopram 20 mg tablet 20 mg PO DAILY #90 tabs 09/03/22 metoprolol succinate 25 mg 25 mg PO DAILY #90 tabs 09/03/22 tablet,extended release 24 hr ondansetron 4 mg disintegrating 4 mg PO Q6H PRN nausea and 01/18/23 tablet vomiting #14 tabs tamsulosin 0.4 mg capsule (Flomax) 0.4 mg PO DAILY #30 caps 01/18/23 hydrocodone 5 mg-acetaminophen 325 2 tab PO Q6H PRN pain #20 tabs 01/19/23 mg tablet ciprofloxacin HCl 500 mg tablet 500 mg PO BID #20 tabs 01/20/23 (Cipro) Allergies Allergy/AdvReac Type Severity Reaction Status Date / Time No Known Drug Allergies Allergy Verified 01/20/23 15:54 Review of Systems Review of Systems Narrative: GENERAL: Denies chills, fatigue, malaise, fever, sweats. HEENT: Denies sinus pain, ear pain, sore throat, difficulty swallowing, dizziness. RESPIRATORY: Denies dyspnea, cough, wheezing, hemoptysis, sputum. CARDIOVASCULAR: Denies chest pain, palpitations, orthopnea, edema, GASTROINTESTINAL: Denies nausea, vomiting, abdominal pain, diarrhea, constipation, melena. : See HPI MUSCULOSKELETAL: denies weakness, joint pain, or bony pain SKIN: Denies rash, skin lesions, or other NEUROLOGIC: Denies weakness, headache, numbness, change in speech, confusion, seizures, incoordination. PSYCHIATRIC: No concerning psychosocial issues. 12 point review of systems is negative except for those stated above Patient History Medical History Anxiety Atrial fibrillation (~2015) Chest pain Chest pain Chicken pox Depression with anxiety Fatigue Measles Mixed hypercholesterolemia and hypertriglyceridemia Myocardial infarction (~2015) Paresthesia of both feet Surgical History Anesthesia History of cardiac radiofrequency ablation (~06/10/17) History of heart artery stent (~04/26/16) Family History Father History of heart disease Mother Cancer Sister Cancer Grandfather Cancer Grandfather History of heart disease Social History Smoking Status: Never smoker Smoking Status: Never smoker alcohol intake frequency: 0-2 drinks per day Substance Use Type: does not use Exam Narrative Exam Narrative: GENERAL: [67] year old patient appears stated age. Well-developed patient, in mild distress. Complaining of right flank pain, rubbing his right side HEAD: Atraumatic. Normocephalic. EYES: Pupils equal round and reactive. Extraocular motions intact. No scleral icterus. No injection or drainage. ENT: Nose without bleeding, purulent drainage. Throat without erythema, tonsillar hypertrophy or exudate. Airway patent. NECK: Trachea midline. Non tender CARDIOVASCULAR: Regular rate and rhythm without murmurs, gallops, or rubs. RESPIRATORY: Clear to auscultation. Breath sounds equal bilaterally. No wheezes, rales, or rhonchi. GASTROINTESTINAL: Abdomen soft, non-tender, nondistended. EXTREMITIES: No edema or joint tenderness. BACK: Nontender without deformity or crepitance. No flank tenderness. NEURO: AOx3. SKIN: No rash or erythema of visible areas Initial Vital Signs Initial Vital Signs: Vital Signs Temperature 98 F 01/20/23 15:49 Pulse Rate 74 01/20/23 15:49 Respiratory Rate 18 01/20/23 15:49 Blood Pressure 142/72 H 01/20/23 15:49 Pulse Oximetry 97 01/20/23 15:49 Oxygen Delivery Method Room Air 01/20/23 15:49 Course Orders Ordered: Discontinued Medications Lidocaine HCl 6 ml/ Sodium (Chloride) 56 mls @ 336 mls/hr IV NOW ONE Stop: 01/20/23 15:58 Last Infusion: 01/20/23 16:37 Dose: 0 mls/hr Documented By: Admin: 01/20/23 16:11 Dose: 336 mls/hr Documented By: SANDHYA Ketorolac Tromethamine (Ketorolac 30 Mg/Ml Vial) 15 mg IV NOW ONE Stop: 01/20/23 15:58 Last Admin: 01/20/23 16:10 Dose: 15 mg Documented By: SANDHYA Levofloxacin (Levofloxacin 250 Mg Tablet) 750 mg PO NOW ONE Stop: 01/20/23 17:48 Last Admin: 01/20/23 18:18 Dose: 750 mg Documented By: CARLTON Vital Signs Vital signs: Vital Signs - 8 hr 01/20/23 15:49 Temperature 98 F Pulse Rate 74 Respiratory Rate 18 Blood Pressure 142/72 H Pulse Oximetry 97 Oxygen Delivery Method Room Air MDM - Abdominal Pain Lab Data 01/20/23 16:05 01/20/23 16:05 Labs: Lab Results 01/20/23 01/20/23 01/20/23 Range/Units 16:05 16:05 16:05 WBC 8.3 (4.5-11.0) X10^3/uL RBC 4.27 L (4.5-5.9) X10^6/uL Hgb 12.9 L (13.5-17.5) g/dL Hct 38.0 L (41-53) % MCV 88.9 (80-100) fL MCH 30.3 (26-34) PG MCHC 34.0 (30-36) % RDW 13.2 (11.6-14.8) % Plt Count 136 L (150-400) X10^3/uL Neut % (Auto) 71.0 (50-75) % Lymph % (Auto) 11.7 L (25-40) % Henry % (Auto) 16.4 H (3-14) % Eos % (Auto) 0.5 L (2-4) % Baso % (Auto) 0.4 (0-2) % Neut # (Auto) 5900 (5151-5742) /uL Lymph # (Auto) 1000 L (1913-9985) /uL Henry # (Auto) 1400 H (0-900) /uL Eos # (Auto) 0 (0-450) /uL Baso # (Auto) 0 (0-100) /uL Sodium 133 L (137-145) mmol/L Potassium 3.6 (3.4-5.1) mmol/L Chloride 99 (98-107) mmol/L Carbon Dioxide 28 (22-32) mmol/L BUN 25 H (9-20) mg/dL Creatinine 1.30 H (0.66-1.25) mg/dL Estimated GFR > 60 (>60) mL/min BUN/Creatinine Ratio 19.2 (6-22) Glucose 114 H (80-110) mg/dL Lactate 1.2 (0.7-2.1) mmol/L Calcium 8.5 (8.4-10.2) mg/dL Magnesium 2.1 (1.6-2.3) mg/dL Lipase 360 H (23-300) U/L Urine RBC (0-5/HPF) Urine WBC (0-5/HPF) Ur Squamous Epith Cells (0-5/HPF) Urine Bacteria (None) Ur Culture Indicated? 01/20/23 Range/Units 16:16 WBC (4.5-11.0) X10^3/uL RBC (4.5-5.9) X10^6/uL Hgb (13.5-17.5) g/dL Hct (41-53) % MCV (80-100) fL MCH (26-34) PG MCHC (30-36) % RDW (11.6-14.8) % Plt Count (150-400) X10^3/uL Neut % (Auto) (50-75) % Lymph % (Auto) (25-40) % Henry % (Auto) (3-14) % Eos % (Auto) (2-4) % Baso % (Auto) (0-2) % Neut # (Auto) (0416-4013) /uL Lymph # (Auto) (7451-5079) /uL Henry # (Auto) (0-900) /uL Eos # (Auto) (0-450) /uL Baso # (Auto) (0-100) /uL Sodium (137-145) mmol/L Potassium (3.4-5.1) mmol/L Chloride (98-107) mmol/L Carbon Dioxide (22-32) mmol/L BUN (9-20) mg/dL Creatinine (0.66-1.25) mg/dL Estimated GFR (>60) mL/min BUN/Creatinine Ratio (6-22) Glucose (80-110) mg/dL Lactate (0.7-2.1) mmol/L Calcium (8.4-10.2) mg/dL Magnesium (1.6-2.3) mg/dL Lipase (23-300) U/L Urine RBC 5-10/hpf H (0-5/HPF) Urine WBC 5-10/hpf H (0-5/HPF) Ur Squamous Epith Cells None seen (0-5/HPF) Urine Bacteria Few (2-10) H (None) Ur Culture Indicated? Specimen cultured Point of care testing: Urine Dip Bedside Urine Glucose Negative Bedside Urine Bilirubin - Negative Bedside Urine Ketone - Negative Urine Specific [place] 1.005 Bedside Urine Occult Blood ++ Bedside Urine pH 6 Bedside Urine Protein - Negative Bedside Urine Urobilinogen - Negative Bedside Urine Nitrite - Negative Bedside Urine Leukocytes +/- 15 Esterase MDM Narrative Medical decision making narrative: 67] year old patient presents with right flank pain and known stone Multiple etiologies for patient's symptoms considered including, but not limited to: [Kidney stone pain versus pyelonephritis versus musculoskeletal versus other] Prior Charts reviewed in our EMR Primary Historian: patient Labs reviewed and interpreted by myself: No white count or left shift, there is a slight increase in his creatinine to 1.3 Imaging reviewed: Renal ultrasound without hydronephrosis or other abnormality Patient's symptoms improved over duration of stay with above-stated therapies. Symptoms improved after above-stated therapies. He has no systemic complaints, no fever, chills nor nausea or vomiting. He has access to pain medications. Due to the presence of some white cells in his urine and urine culture from a few days ago I did place him on antibiotics. Findings and discharge diagnosis discussed with patient/family followed by verbalization of understanding Return precautions discussed with patient/family whom verbalize understanding of diagnosis and plan Discharge Plan Departure Patient Disposition: Home Clinical Impression: Kidney stone on right side, Acute UTI Instructions: DI for Kidney Stones Activity Restrictions/Additional Instructions: *You have been diagnosed with [right-sided kidney stone] *What to do: *Please continue to take your regular medications as directed. [ x] New medication prescriptions sent to your pharmacy: [ [facility]] [ ] New medication written as a paper prescription [ ] No new medications given *Please follow up with Dr. Pimentel tomorrow. Please call the urology clinic in the morning, let them know you were seen in the emergency department and we would like you seen in follow-up *Return to Emergency Department if you should have any new, worsening or concerning symptoms, such as [fever greater than 101 F, shaking chills, worsening pain, persistent vomiting or other bothersome symptoms] Prescriptions: New ciprofloxacin HCl [Cipro] 500 mg tablet 500 mg PO BID Qty: 20 0RF No Action metoprolol succinate 25 mg tablet extended release 24 hr 25 mg PO DAILY Qty: 90 3RF citalopram 20 mg tablet 20 mg PO DAILY Qty: 90 3RF Rx Instructions: Take 1 tab every morning. hydrocodone-acetaminophen 5-325 mg tablet 2 tab PO Q6H PRN (Reason: pain) Qty: 20 0RF Rx Instructions: Limit as possible/as kidney stone aloows. Contact PCP if pain persists over the next 72 hours or if fever. aspirin [Adult Aspirin Regimen] 81 mg tablet,delayed release (/EC) 81 mg PO DAILY coenzyme Q10 200 mg capsule 200 mg PO DAILY vitamin K2 100 mcg capsule 100 mcg PO DAILY cholecalciferol (vitamin D3) 250 mcg (10,000 unit) capsule 250 mcg PO DAILY melatonin 10 mg capsule 10 mg PO TID Patient Comments: 8am, noon and 6pm tumeric 1,500 mg PO .qd ezetimibe 10 mg tablet 10 mg PO DAILY rosuvastatin [Crestor] 40 mg tablet 40 mg PO DAILY L-Carnitine 1,000 mg 1,000 mg PO DAILY ondansetron 4 mg tablet,disintegrating 4 mg PO Q6H PRN (Reason: nausea and vomiting) Qty: 14 0RF tamsulosin [Flomax] 0.4 mg capsule 0.4 mg PO DAILY Qty: 30 0RF Referrals: Rosa Mathews ARNP [Primary Care Provider] - Ellis Pimentel MD [Physician] - Stand Alone Forms: Patient Portal/API
--- NOTE | 2023-01-20 15:57 | DI.US.S_ITS ---
PROCEDURE: US RENAL COMPLETE INDICATIONS: WORSENING RIGHT FLANK PAIN; KNOWN STONE TECHNIQUE: Real-time scanning was performed of the kidneys and bladder, with image documentation. COMPARISON: None. FINDINGS: Kidneys: Kidneys are normal in size. Right kidney measures 12.6 cm long; left kidney measures 11.8 cm long. Right renal cortical thickness is 1.8 cm; left renal cortical thickness is 1.6 cm. Renal cortical echotexture is normal. No hydronephrosis or nephrolithiasis. No suspicious solid mass lesions. Simple cyst in the superior pole measuring 4.7 cm. Bladder: The bladder is decompressed with a Conrad. Miscellaneous: No free pelvic fluid. IMPRESSION: 1. No acute abnormality of the kidneys. 2. Simple cyst in the right superior pole measuring 4.7 cm. Dictated by: Abdiel Edmond M.D. on 01/20/2023 at 16:37 Approved by: Abdiel Edmond M.D. on 01/20/2023 at 16:39
[2023-01-20] MEDS: KETOROLAC 30 MG/ML VIAL 15 MG IV (16:10)
[2023-01-20] MEDS: LIDOCAINE 2% (PF) 6 ML in SODIUM CHLORIDE 0.9% 50 ML 336 ML IV (16:11)
[2023-01-20 16:19] LABS: Add Manual Diff / Slide Review NO; Basophils Absolute Auto 0 /uL (0-100); Basophils Percent Auto 0.4 % (0-2); Eosinophils Absolute Auto 0 /uL (0-450); Eosinophils Percent Auto 0.5 % (2-4); Hemoglobin 12.9 g/dL (13.5-17.5); Lymphocytes Absolute Auto 1000 /uL (1100-4500); Lymphocytes Percent Auto 11.7 % (25-40); Mean Corpuscular Hemoglobin 30.3 PG (26-34); Mean Corpuscular Volume 88.9 fL (80-100); Monocytes Absolute Auto 1400 /uL (0-900); Monocytes Percent Auto 16.4 % (3-14); Neutrophils Absolute Auto 5900 /uL (1500-7000); Platelet Count 136 X10^3/uL (150-400); Red Blood Cell Count 4.27 X10^6/uL (4.5-5.9); Red Cell Distribution Width 13.2 % (11.6-14.8); White Blood Cell Count 8.3 X10^3/uL (4.5-11.0)
[2023-01-20 16:21] LABS: BUN Creatinine Ratio 19.2 (6-22); Blood Urea Nitrogen 25 mg/dL (9-20); Calcium 8.5 mg/dL (8.4-10.2); Carbon Dioxide 28 mmol/L (22-32); Chloride 99 mmol/L (98-107); Estimated Glomerular Filt Rate > 60 mL/min (>60); Glucose 114 mg/dL (80-110); HEMOLYSIS < 15 (0-50); Lactate (Lactic Acid) 1.2 mmol/L (0.7-2.1); Lipase 360 U/L (23-300); Magnesium 2.1 mg/dL (1.6-2.3); Potassium 3.6 mmol/L (3.4-5.1); Sodium 133 mmol/L (137-145)
[2023-01-20 17:23] LABS: Bacteria Urine Few (2-10); Culture Indicated Urine Specimen Cultured; RBC Urine 5-10/HPF (0-5/HPF); Squamous Epithelial Cell Urine None Seen (0-5/HPF); WBC Urine 5-10/HPF (0-5/HPF)
[2023-01-20] MEDS: levoFLOXacin 250 MG TABLET 750 MG PO (18:18)
[2023-01-20 18:26] VITALS: BP 112/58; PULSE 72; RESP 16; O2SAT 96
[2023-01-20 18:29] VITALS: BP 112/58; PULSE 86; RESP 18; O2SAT 99
== END 2023-01-20 18:30 | disposition home or self-care (01) ==
PROVIDERS: Emergency Provider Emergency Medicine; PCP Nurse Practitioner
DX: N20.0 Calculus of kidney (principal); N39.0 Urinary tract infection, site not specified
CPT/HCPCS: 36415; 76770; 80048; 81003; 81015; 83605; 83690; 83735; 85025; 87077; 87086; 87147; 96365; 96375; 99284; J1885

== ENCOUNTER 2023-01-24 09:16 | Emergency (ER) | payer MEDICARE, OTHER, SELFPAY ==
[2023-01-24] VITALS (10 sets, daily range): BP systolic 120–160; BP diastolic 70–82; PULSE 63–78; RESP 18; TEMP 37.2; O2SAT 91–99; BMI 23.2
--- NOTE | 2023-01-24 09:29 | ED_ITS ---
HPI - Abdominal Pain General Chief Complaint: Urogenital-Male Stated Complaint: Kidney stone complication, says pain is at an 8 Time Seen by Provider: 01/24/23 09:23 Source: patient and family Mode of arrival: Wheelchair History of Present Illness HPI narrative: Patient 67-year-old male with new diagnosis of right nephrolithiasis. He has a 4 mm stone at proximal ureter. This is his 3rd visit to the ER over the last 6 days. He initially was diagnosed on January 18. At that time he had urinary retention Conrad catheter was placed. He was seen again on the . For increasing pain. Ultrasound did not show hydronephrosis. He is found to have slight increase of his creatinine and UTI he was started on Cipro. Related Data Home Medications Medication Instructions Recorded Confirmed aspirin 81 mg tablet,delayed 81 mg PO DAILY 07/22/19 12/24/21 release (Adult Aspirin Regimen) coenzyme Q10 200 mg capsule 200 mg PO DAILY 07/22/19 12/24/21 L-Carnitine 1,000 mg PO DAILY 09/16/19 12/24/21 cholecalciferol (vitamin D3) 250 250 mcg PO DAILY 01/09/21 12/24/21 mcg (10,000 unit) capsule melatonin 10 mg capsule 10 mg PO TID 01/09/21 12/24/21 tumeric 1,500 mg PO .qd 01/09/21 12/24/21 vitamin K2 100 mcg capsule 100 mcg PO DAILY 01/09/21 12/24/21 rosuvastatin 40 mg tablet (Crestor) 40 mg PO DAILY 12/24/21 12/24/21 ezetimibe 10 mg tablet 10 mg PO DAILY Get LDL under 70 06/23/22 06/23/22 Previous Rx's Medication Instructions Recorded citalopram 20 mg tablet 20 mg PO DAILY #90 tabs 09/03/22 metoprolol succinate 25 mg 25 mg PO DAILY #90 tabs 09/03/22 tablet,extended release 24 hr ondansetron 4 mg disintegrating 4 mg PO Q6H PRN nausea and 01/18/23 tablet vomiting #14 tabs tamsulosin 0.4 mg capsule (Flomax) 0.4 mg PO DAILY #30 caps 01/18/23 ciprofloxacin HCl 500 mg tablet 500 mg PO BID #20 tabs 01/20/23 (Cipro) ketorolac 10 mg tablet 10 mg PO Q6H PRN pain #14 tabs 01/21/23 ondansetron 4 mg disintegrating 4 mg PO TID-QID PRN nausea and 01/21/23 tablet vomiting #10 tabs hydrocodone 10 mg-acetaminophen 1 tab PO Q4-6H PRN pain #60 tabs 01/23/23 325 mg tablet Allergies Allergy/AdvReac Type Severity Reaction Status Date / Time No Known Drug Allergies Allergy Verified 01/20/23 15:54 Review of Systems Review of Systems ROS Unobtainable: All systems reviewed & are unremarkable except as noted in HPI and below Patient History Medical History Anxiety Atrial fibrillation (~2015) Chest pain Chest pain Chicken pox Depression with anxiety Fatigue Measles Mixed hypercholesterolemia and hypertriglyceridemia Myocardial infarction (~2015) Paresthesia of both feet Surgical History Anesthesia History of cardiac radiofrequency ablation (~06/10/17) History of heart artery stent (~04/26/16) Family History Father History of heart disease Mother Cancer Sister Cancer Grandfather Cancer Grandfather History of heart disease Social History Smoking Status: Never smoker Smoking Status: Never smoker alcohol intake frequency: 0-2 drinks per day Substance Use Type: does not use Exam Initial Vital Signs Initial Vital Signs: Vital Signs Temperature 98.9 F 01/24/23 09:20 Pulse Rate 78 01/24/23 09:20 Respiratory Rate 18 01/24/23 09:20 Blood Pressure 160/82 H 01/24/23 09:20 Pulse Oximetry 99 01/24/23 09:20 Oxygen Delivery Method Room Air 01/24/23 09:20 GENERAL: Alert 67-year-old male appears uncomfortable HEENT: Head atraumatic,EOMI, pupils reactive, face symmetric, moist mucous membranes CARDIOVASCULAR: Regular rate and rhythm without murmurs, rubs or gallops. RESPIRATORY: Breath sounds equal bilaterally, no wheezes rales or rhonchi. ABDOMEN: Soft, nontender. Normoactive bowel sounds all 4 quadrants. No guarding or rebound. : Right CVA tenderness EXTREMITIES: Normal range of motion, no clubbing or edema. Neurovascularly intact NEUROLOGICAL: Alert and oriented x4.Normal gait and speech. SKIN: Warm, dry, no laceration, no petechiae, no rashes or lesions. Course Orders Ordered: ED Orders 01/24/23 09:29 Complete Blood Count AUTO DIFF Stat Comprehensive Metabolic Panel Stat Lipase Stat 01/24/23 09:50 CT kidney ureter bladder (KUB) Stat 01/24/23 11:10 Urinalysis and Microscopic Stat Discontinued Medications Lidocaine HCl 6 ml/ Sodium (Chloride) 56 mls @ 336 mls/hr IV NOW ONE Stop: 01/24/23 09:29 Last Infusion: 01/24/23 10:19 Dose: 0 mls/hr Documented By: Admin: 01/24/23 09:53 Dose: 336 mls/hr Documented By: ASAF Sodium Chloride (Normal Saline 0.9%) 1,000 mls @ 1,000 mls/hr IV BOLUS ONE Stop: 01/24/23 10:29 Last Infusion: 01/24/23 11:03 Dose: 0 mls/hr Documented By: Admin: 01/24/23 09:53 Dose: 1,000 mls/hr Documented By: AASF Ketorolac Tromethamine (Ketorolac 30 Mg/Ml Vial) 15 mg IV NOW ONE Stop: 01/24/23 09:25 Last Admin: 01/24/23 09:44 Dose: 15 mg Documented By: ASAF Morphine Sulfate (Morphine 4 Mg/Ml Inj) 4 mg IV NOW ONE Stop: 01/24/23 09:31 Last Admin: 01/24/23 09:47 Dose: 4 mg Documented By: ASAF Ondansetron HCl (Ondansetron 4 Mg Odt) 4 mg PO NOW PRN PRN Reason: Nausea And Vomiting Ondansetron HCl (Ondansetron 4 Mg/2 Ml Inj) 4 mg IV NOW PRN PRN Reason: Nausea And Vomiting Ondansetron HCl (Ondansetron 4 Mg/2 Ml Inj) 4 mg IV NOW ONE Stop: 01/24/23 09:31 Last Admin: 01/24/23 09:46 Dose: 4 mg Documented By: ASAF Vital Signs Vital signs: Vital Signs - 8 hr 01/24/23 09:20 01/24/23 10:18 01/24/23 10:21 Temperature 98.9 F Pulse Rate 78 74 72 Respiratory Rate 18 Blood Pressure 160/82 H Pulse Oximetry 99 91 92 Oxygen Delivery Method Room Air 01/24/23 10:21 01/24/23 10:30 01/24/23 10:30 Temperature Pulse Rate 74 Respiratory Rate Blood Pressure 127/72 120/70 Pulse Oximetry 93 Oxygen Delivery Method 01/24/23 11:00 01/24/23 11:30 01/24/23 12:00 Temperature Pulse Rate 73 68 66 Respiratory Rate Blood Pressure Pulse Oximetry 95 93 93 Oxygen Delivery Method 01/24/23 12:30 01/24/23 13:00 01/24/23 13:30 Temperature Pulse Rate 63 64 65 Respiratory Rate Blood Pressure 120/70 Pulse Oximetry 93 95 96 Oxygen Delivery Method MDM - Abdominal Pain Lab Data 01/24/23 09:29 01/24/23 09:29 Labs: Lab Results 01/24/23 01/24/23 01/24/23 Range/Units 09:29 09:29 11:10 WBC 7.6 (4.5-11.0) X10^3/uL RBC 4.51 (4.5-5.9) X10^6/uL Hgb 13.7 (13.5-17.5) g/dL Hct 39.5 L (41-53) % MCV 87.5 (80-100) fL MCH 30.5 (26-34) PG MCHC 34.8 (30-36) % RDW 13.2 (11.6-14.8) % Plt Count 213 (150-400) X10^3/uL Neut % (Auto) 65.8 (50-75) % Lymph % (Auto) 15.1 L (25-40) % [place] % (Auto) 18.2 H (3-14) % Eos % (Auto) 0.4 L (2-4) % Baso % (Auto) 0.5 (0-2) % Neut # (Auto) 5000 (4754-2727) /uL Lymph # (Auto) 1100 (7148-3921) /uL [place] # (Auto) 1400 H (0-900) /uL Eos # (Auto) 0 (0-450) /uL Baso # (Auto) 0 (0-100) /uL Sodium 136 L (137-145) mmol/L Potassium 4.1 (3.4-5.1) mmol/L Chloride 97 L (98-107) mmol/L Carbon Dioxide 30 (22-32) mmol/L BUN 19 (9-20) mg/dL Creatinine 1.22 (0.66-1.25) mg/dL Estimated GFR > 60 (>60) mL/min BUN/Creatinine Ratio 15.6 (6-22) Glucose 117 H (80-110) mg/dL Calcium 9.0 (8.4-10.2) mg/dL Total Bilirubin 0.8 (0.2-1.3) mg/dL AST 43 (17-59) IU/L ALT 55 H (<50) IU/L Alkaline Phosphatase 87 (38-126) U/L Total Protein 7.6 (6.3-8.2) g/dL Albumin 4.1 (3.5-5.0) g/dL Globulin 3.5 (1.7-4.1) g/dL Albumin/Globulin Ratio 1.2 (1.0-2.8) Lipase 171 D (23-300) U/L Urine Color Yellow Urine Appearance Clear Urine pH 7.5 (4.5-8.0) Ur Specific [employer] 1.010 (1.000-1.035) Urine Protein Negative (Negative) Urine Glucose (UA) Negative (Negative) g/dL Urine Ketones 2+ H (NEGATIVE) Urine Occult Blood 3+ H (Negative) Urine Nitrate Negative (Negative) Urine Bilirubin Negative (NEGATIVE) Urine Urobilinogen 1.0 (0.2) E.U./dL Ur Leukocyte Esterase Negative (NEGATIVE) Urine RBC 1-5/hpf (0-5/HPF) Urine WBC None seen (0-5/HPF) Ur Squamous Epith Cells None seen (0-5/HPF) Urine Bacteria None seen (None) Ur Culture Indicated? Cult not indicated Imaging Data CT scan - abdomen/pelvis: Radiologist's Impression: PROCEDURE:? CT KIDNEY URETER BLADDER (KUB) ? INDICATIONS:? worsening right kidney stone ? TECHNIQUE:? Axial sections were acquired from the lung bases to the pubic symphysis.? Coronal and sagittal reformats were performed.? For radiation dose reduction, the following was used: ?automated exposure control, adjustment of mA and/or kV according to patient size.? ? COMPARISON:? None. ? FINDINGS: Image quality:? Excellent.? ? Lung bases:? Lung bases are clear.? Heart size is normal.? Bibasilar atelectasis. ? Solid organs:? Liver: The liver has no mass or intrahepatic biliary ductal dilatation. The portal vein and hepatic veins are patent. Biliary:? The gallbladder contains several layering stones.? No wall thickening or pericholecystic fluid.? Pancreas: The pancreas has no mass or ductal dilatation. There is no surrounding inflammation. Spleen: Normal size. There are no masses. Adrenals: No hypertrophy or nodules. Kidneys:? 4 millimeter calcification in the right distal ureter. No solid mass.? Both kidneys have multiple cysts.? The right kidney has hydronephrosis and ureteral dilatation.? The bladder is decompressed. ? Peritoneum and bowel:? The distal esophagus and stomach are normal.? The small bowel has a normal caliber and appearance. The terminal ileum is normal. The large bowel has a normal caliber and appearance.? The appendix is normal. No free fluid or air.? ? Nodes and vessels:? No retroperitoneal or mesenteric adenopathy by size criteria.? The aorta has atherosclerosis with no aneurysmal dilatation.? ? Miscellaneous:? No abdominal wall mass or hernia. ? PELVIS:? Genitourinary:? The bladder has no wall thickening or mass. No bladder calcifications. ? Bones:? No suspicious bony lesions.? No vertebral body compression fractures.? ? IMPRESSION:? 1. 4 millimeter right distal ureteral calcification causing moderate to severe right hydroureteronephrosis and right perinephric stranding. 2. Cholelithiasis without acute cholecystitis.? ? Dictated by: Abdiel Edmond M.D. on 01/24/2023 at 10:34 ? ? Approved by: Abdiel Edmond M.D. on 01/24/2023 at 11:16 ? MDM Narrative Medical decision making narrative: Patient is 67-year-old male with a known right-sided kidney stone urinary retention with Conrad catheter UTI on Cipro presenting today with worsening pain. Pain is immediately controlled Toradol and morphine. Blood work is actually reassuring without leukocytosis anemia. Kidney function has actually improved with a creatinine from 1.3 improved at 1.2. No electrolyte abnormalities. CT confirms persistent right 4 mm distal ureter stone with perinephric stranding and moderate to severe hydronephrosis. This is worse than a previous scan but it does show that the stone is actually moving. Lela-Dr. Rivera on-call Urology updated on patient's symptoms test results. Reports that if pain is controlled he can go home with pain management. However does heat close outpatient follow-up with Urology. Patient is scheduled for January [address] Pimentel. He overall is feeling much better would prefer to go home at this time I see no need for admission. We do not have urology coverage here at [facility] today or tomorrow. No need for transfer or admission. Discharge Plan Departure Patient Disposition: Home Clinical Impression: Kidney stones Instructions: DI for Kidney Stones Activity Restrictions/Additional Instructions: *You have been diagnosed with kidney stone *What to do: At this time please taking medication as directed. Careful taking NSAID however if needed please take it. *Continue to take medications as directed *Follow up with your primary care provider in 2-3 days or call [phone] Follow-up with Dr. Pimentel scheduled *Return to ER if you should have increasing pain fever persistent vomiting tolerating fluids or any new, worsening or concerning symptoms Prescriptions: No Action metoprolol succinate 25 mg tablet extended release 24 hr 25 mg PO DAILY Qty: 90 3RF citalopram 20 mg tablet 20 mg PO DAILY Qty: 90 3RF Rx Instructions: Take 1 tab every morning. aspirin [Adult Aspirin Regimen] 81 mg tablet,delayed release (DR/EC) 81 mg PO DAILY coenzyme Q10 200 mg capsule 200 mg PO DAILY vitamin K2 100 mcg capsule 100 mcg PO DAILY cholecalciferol (vitamin D3) 250 mcg (10,000 unit) capsule 250 mcg PO DAILY melatonin 10 mg capsule 10 mg PO TID Patient Comments: 8am, noon and 6pm tumeric 1,500 mg PO .qd ezetimibe 10 mg tablet 10 mg PO DAILY hydrocodone-acetaminophen 10-325 mg tablet 1 tab PO Q4-6H PRN (Reason: pain) Qty: 60 0RF Rx Instructions: Take 1 tab by mouth every 4-6 hours as needed for pain rosuvastatin [Crestor] 40 mg tablet 40 mg PO DAILY L-Carnitine 1,000 mg 1,000 mg PO DAILY ciprofloxacin HCl [Cipro] 500 mg tablet 500 mg PO BID Qty: 20 0RF ketorolac 10 mg tablet 10 mg PO Q6H PRN (Reason: pain) Qty: 14 0RF ondansetron 4 mg tablet,disintegrating 4 mg PO TID-QID PRN (Reason: nausea and vomiting) Qty: 10 0RF ondansetron 4 mg tablet,disintegrating 4 mg PO Q6H PRN (Reason: nausea and vomiting) Qty: 14 0RF tamsulosin [Flomax] 0.4 mg capsule 0.4 mg PO DAILY Qty: 30 0RF Referrals: Rosa Mathews ARNP [Primary Care Provider] - Stand Alone Forms: Patient Portal/API
[2023-01-24 09:34] LABS: Add Manual Diff / Slide Review NO; Basophils Absolute Auto 0 /uL (0-100); Basophils Percent Auto 0.5 % (0-2); Eosinophils Absolute Auto 0 /uL (0-450); Eosinophils Percent Auto 0.4 % (2-4); Hematocrit 39.5 % (41-53); Hemoglobin 13.7 g/dL (13.5-17.5); Lymphocytes Absolute Auto 1100 /uL (1100-4500); Lymphocytes Percent Auto 15.1 % (25-40); Mean Corpuscular HGB Conc 34.8 % (30-36); Mean Corpuscular Hemoglobin 30.5 PG (26-34); Mean Corpuscular Volume 87.5 fL (80-100); Monocytes Absolute Auto 1400 /uL (0-900); Monocytes Percent Auto 18.2 % (3-14); Neutrophils Absolute Auto 5000 /uL (1500-7000); Neutrophils Percent Auto 65.8 % (50-75); Platelet Count 213 X10^3/uL (150-400); Red Blood Cell Count 4.51 X10^6/uL (4.5-5.9); Red Cell Distribution Width 13.2 % (11.6-14.8); White Blood Cell Count 7.6 X10^3/uL (4.5-11.0)
[2023-01-24] MEDS: KETOROLAC 30 MG/ML VIAL 15 MG IV (09:44)
[2023-01-24] MEDS: ONDANSETRON 4 MG/2 ML INJ IV (09:46)
[2023-01-24] MEDS: MORPHINE 4 MG/ML INJ IV (09:47)
--- NOTE | 2023-01-24 09:50 | DI.CT.S_ITS ---
PROCEDURE: CT KIDNEY URETER BLADDER (KUB) INDICATIONS: worsening right kidney stone TECHNIQUE: Axial sections were acquired from the lung bases to the pubic symphysis. Coronal and sagittal reformats were performed. For radiation dose reduction, the following was used: automated exposure control, adjustment of mA and/or kV according to patient size. COMPARISON: None. FINDINGS: Image quality: Excellent. Lung bases: Lung bases are clear. Heart size is normal. Bibasilar atelectasis. Solid organs: Liver: The liver has no mass or intrahepatic biliary ductal dilatation. The portal vein and hepatic veins are patent. Biliary: The gallbladder contains several layering stones. No wall thickening or pericholecystic fluid. Pancreas: The pancreas has no mass or ductal dilatation. There is no surrounding inflammation. Spleen: Normal size. There are no masses. Adrenals: No hypertrophy or nodules. Kidneys: 4 millimeter calcification in the right distal ureter. No solid mass. Both kidneys have multiple cysts. The right kidney has hydronephrosis and ureteral dilatation. The bladder is decompressed. Peritoneum and bowel: The distal esophagus and stomach are normal. The small bowel has a normal caliber and appearance. The terminal ileum is normal. The large bowel has a normal caliber and appearance. The appendix is normal. No free fluid or air. Nodes and vessels: No retroperitoneal or mesenteric adenopathy by size criteria. The aorta has atherosclerosis with no aneurysmal dilatation. Miscellaneous: No abdominal wall mass or hernia. PELVIS: Genitourinary: The bladder has no wall thickening or mass. No bladder calcifications. Bones: No suspicious bony lesions. No vertebral body compression fractures. IMPRESSION: 1. 4 millimeter right distal ureteral calcification causing moderate to severe right hydroureteronephrosis and right perinephric stranding. 2. Cholelithiasis without acute cholecystitis. Dictated by: Abdiel Edmond M.D. on 01/24/2023 at 10:34 Approved by: Abdiel Edmond M.D. on 01/24/2023 at 11:16
[2023-01-24] MEDS: LIDOCAINE 2% (PF) 6 ML in SODIUM CHLORIDE 0.9% 50 ML 336 ML IV (09:53)
[2023-01-24] MEDS: SODIUM CHLORIDE 0.9% 1,000 ML 1000 ML IV (09:53)
[2023-01-24 10:10] LABS: Alanine Aminotransferase 55 IU/L (<50); Albumin 4.1 g/dL (3.5-5.0); Albumin Globulin Ratio 1.2 (1.0-2.8); Alkaline Phosphatase 87 U/L (38-126); Aspartate Aminotransferase 43 IU/L (17-59); BUN Creatinine Ratio 15.6 (6-22); Bilirubin Total 0.8 mg/dL (0.2-1.3); Blood Urea Nitrogen 19 mg/dL (9-20); Carbon Dioxide 30 mmol/L (22-32); Chloride 97 mmol/L (98-107); Estimated Glomerular Filt Rate > 60 mL/min (>60); Globulin 3.5 g/dL (1.7-4.1); Glucose 117 mg/dL (80-110); HEMOLYSIS < 15 (0-50); Lipase 171 U/L (23-300); Potassium 4.1 mmol/L (3.4-5.1); Sodium 136 mmol/L (137-145); Total Protein 7.6 g/dL (6.3-8.2)
[2023-01-24 11:20] LABS: Appearance Urine UA CLEAR; Bilirubin Urine UA NEGATIVE (NEGATIVE); Color Urine UA YELLOW; Glucose Urine UA NEGATIVE (Negative); Ketones Urine UA 2+ (NEGATIVE); Leukocyte Esterase Urine UA NEGATIVE (NEGATIVE); Nitrite Urine UA NEGATIVE (Negative); Occult Blood Urine UA 3+ (Negative); Protein Urine UA NEGATIVE (Negative); pH Urine UA 7.5 (4.5-8.0)
[2023-01-24 11:35] LABS: Bacteria Urine None Seen; Culture Indicated Urine Cult Not Indicated; RBC Urine 1-5/HPF (0-5/HPF); Squamous Epithelial Cell Urine None Seen (0-5/HPF); WBC Urine None Seen (0-5/HPF)
== END 2023-01-24 14:13 | disposition home or self-care (01) ==
PROVIDERS: Emergency Provider Emergency Medicine; PCP Nurse Practitioner
DX: N13.2 Hydronephrosis with renal and ureteral calculous obstruction (principal); Z87.442 Personal history of urinary calculi
CPT/HCPCS: 36415; 74176; 80053; 81001; 83690; 85025; 96365; 96375; 99284; 99285; J1885; J2270; J2405

== ENCOUNTER → 2023-01-26 13:02 | Outpatient (CLI) | payer MEDICARE, OTHER, SELFPAY ==
--- NOTE | 2023-01-26 13:04 | DI.RAD.S_ITS ---
PROCEDURE: XR KUB INDICATIONS: kidney stones TECHNIQUE: One view of the abdomen acquired. COMPARISON: [facility], CT, CT KIDNEY URETER BLADDER (KUB), 01/24/2023, 10:06. FINDINGS: No pathologically dilated gas-filled loops of bowel. No definite renal stone visualized radiographically. Small calcification projecting over the right pelvis near the superior pubic ramus may represent a phlebolith seen previously or the previously visualized right distal ureter stone. IMPRESSION: No definite renal stone visualized radiographically. Small calcification projecting over the right pelvis may represent a phlebolith seen previously or the previously visualized right distal ureter stone. Dictated by: Jose A Bush M.D. on 01/27/2023 at 8:28 Approved by: Jose A Bush M.D. on 01/27/2023 at 8:31
== END ==
PROVIDERS: PCP Nurse Practitioner; Referring Provider Specialist; Visit Provider Specialist
DX: N20.0 Calculus of kidney (principal)
CPT/HCPCS: 74018

== ENCOUNTER → 2023-01-29 14:43 | Outpatient (CLI) | payer MEDICARE, OTHER, SELFPAY ==
[2023-02-04 09:10] LABS: Ca oxalate dihydrate 10 % (.); Ca oxalate monohydr 90 % (.); Size 5x4 mm (.)
== END ==
PROVIDERS: PCP Nurse Practitioner; Visit Provider Specialist
DX: N20.1 Calculus of ureter (principal); N40.1 Benign prostatic hyperplasia with lower urinary tract symptoms; N13.8 Other obstructive and reflux uropathy; Z87.442 Personal history of urinary calculi; Z87.898 Personal history of other specified conditions; Z87.440 Personal history of urinary (tract) infections
CPT/HCPCS: 51798; 82365; 99214

== ENCOUNTER → 2023-03-05 10:44 | Outpatient (CLI) | payer MEDICARE, OTHER, SELFPAY ==
--- NOTE | 2023-03-05 10:48 | DI.RAD.S_ITS ---
PROCEDURE: XR KUB INDICATIONS: calculus of kidney and ureter TECHNIQUE: One view of the abdomen acquired. COMPARISON: [facility], CT, CT KIDNEY URETER BLADDER (KUB), 01/24/2023, 10:06. [facility], CR, XR KUB, 01/26/2023, 12:59. FINDINGS: Surgical changes and devices: None. Bowel: Bowel gas pattern is normal. Soft tissues: 3 millimeter stone projects along the lateral side of the urinary bladder. Bones: No suspicious bony lesions. IMPRESSION: 3 millimeter stone projects along the lateral side of the urinary bladder. This likely corresponds to prior fecalith seen on comparison CT. No definite nephrolithiasis. Dictated by: Ted Cordova M.D. on 03/05/2023 at 11:47 Approved by: Ted Cordova M.D. on 03/05/2023 at 11:49
[2023-03-05 13:00] LABS: Uric Acid 3.6 mg/dL (3.5-8.5)
[2023-03-05 13:00] LABS: Alanine Aminotransferase 57 IU/L (<50); Albumin 4.3 g/dL (3.5-5.0); Albumin Globulin Ratio 1.6 (1.0-2.8); Alkaline Phosphatase 71 U/L (38-126); Aspartate Aminotransferase 39 IU/L (17-59); BUN Creatinine Ratio 19.2 (6-22); Bilirubin Total 0.7 mg/dL (0.2-1.3); Blood Urea Nitrogen 14 mg/dL (9-20); Calcium 8.9 mg/dL (8.4-10.2); Carbon Dioxide 30 mmol/L (22-32); Chloride 101 mmol/L (98-107); Cholesterol 113 mg/dL (140-199); Estimated Glomerular Filt Rate > 60 mL/min (>60); Globulin 2.7 g/dL (1.7-4.1); Glucose 84 mg/dL (80-110); HDL Cholesterol 38 mg/dL (40-60); HEMOLYSIS < 15 (0-50); LDL Cholesterol Calculated 62 mg/dL (<100); Potassium 4.1 mmol/L (3.4-5.1); Sodium 139 mmol/L (137-145); Triglycerides 63 mg/dL (35-150)
[2023-03-05 13:27] LABS: Prostate Specific Antigen 1.88 ng/mL (0.10-4.00)
[2023-03-07 09:50] LABS: Parathyroid Hormone Int 39 pg/mL (15-65)
== END ==
PROVIDERS: Specialist; PCP Nurse Practitioner; Referring Provider Internal Medicine; Visit Provider Internal Medicine
DX: I25.10 Atherosclerotic heart disease of native coronary artery without angina pectoris (principal); N20.2 Calculus of kidney with calculus of ureter; N13.8 Other obstructive and reflux uropathy; N40.1 Benign prostatic hyperplasia with lower urinary tract symptoms
CPT/HCPCS: 36415; 74018; 80053; 80061; 83970; 84153; 84550

== ENCOUNTER → 2024-02-16 07:11 | Outpatient (CLI) | payer MEDICARE, OTHER, SELFPAY ==
[2024-02-16 08:08] LABS: Add Manual Diff / Slide Review NO; Basophils Absolute Auto 0 /uL (0-100); Basophils Percent Auto 0.8 % (0-2); Eosinophils Absolute Auto 200 /uL (0-450); Eosinophils Percent Auto 3.4 % (2-4); Hemoglobin 13.6 g/dL (13.5-17.5); Lymphocytes Absolute Auto 1600 /uL (1100-4500); Lymphocytes Percent Auto 32.8 % (25-40); Mean Corpuscular HGB Conc 33.9 % (30-36); Mean Corpuscular Hemoglobin 30.4 PG (26-34); Mean Corpuscular Volume 89.6 fL (80-100); Monocytes Absolute Auto 600 /uL (0-900); Neutrophils Absolute Auto 2500 /uL (1500-7000); Platelet Count 175 X10^3/uL (150-400); Red Blood Cell Count 4.46 X10^6/uL (4.5-5.9); Red Cell Distribution Width 13.3 % (11.6-14.8); White Blood Cell Count 4.9 X10^3/uL (4.5-11.0)
[2024-02-16 08:33] LABS: Alanine Aminotransferase 32 IU/L (<50); Albumin 4.1 g/dL (3.5-5.0); Albumin Globulin Ratio 1.9 (1.0-2.8); Alkaline Phosphatase 70 U/L (38-126); Aspartate Aminotransferase 29 IU/L (17-59); BUN Creatinine Ratio 25.4 (6-22); Bilirubin Total 0.8 mg/dL (0.2-1.3); Blood Urea Nitrogen 18 mg/dL (9-20); Calcium 8.6 mg/dL (8.4-10.2); Carbon Dioxide 26 mmol/L (22-32); Chloride 103 mmol/L (98-107); Cholesterol 126 mg/dL (140-199); Estimated Glomerular Filt Rate > 60 mL/min (>60); Globulin 2.2 g/dL (1.7-4.1); Glucose 81 mg/dL (80-110); HDL Cholesterol 39 mg/dL (40-60); HEMOLYSIS < 15 (0-50); LDL Cholesterol Calculated 74 mg/dL (<100); Potassium 4.4 mmol/L (3.4-5.1); Sodium 137 mmol/L (137-145); Total Protein 6.3 g/dL (6.3-8.2); Triglycerides 67 mg/dL (35-150)
[2024-02-16 09:07] LABS: Free T3, Triiodothyronine Free 3.11 pg/mL (2.77-5.27); Free T4, Direct Thyroxine 0.85 ng/dL (0.78-2.19)
[2024-02-16 09:21] LABS: Thyroid Stimulating Hormone 3.11 uIU/mL (0.47-4.68)
== END ==
PROVIDERS: PCP Nurse Practitioner; Referring Provider Nurse Practitioner; Visit Provider Nurse Practitioner
DX: Z79.899 Other long term (current) drug therapy (principal); Z12.5 Encounter for screening for malignant neoplasm of prostate; I48.91 Unspecified atrial fibrillation; E78.2 Mixed hyperlipidemia; F41.8 Other specified anxiety disorders
CPT/HCPCS: 36415; 80053; 80061; 84439; 84443; 84481; 85025; G0103

== ENCOUNTER → 2025-04-13 09:46 | Outpatient (CLI) | payer MEDICARE, OTHER, SELFPAY ==
[2025-04-13 11:07] LABS: Alanine Aminotransferase 36 IU/L (<50); Albumin 4.5 g/dL (3.5-5.0); Albumin Globulin Ratio 1.7 (1.0-2.8); Alkaline Phosphatase 59 U/L (38-126); Blood Urea Nitrogen 17 mg/dL (9-20); Calcium 9.3 mg/dL (8.4-10.2); Carbon Dioxide 30 mmol/L (22-32); Chloride 102 mmol/L (98-107); Estimated Glomerular Filt Rate > 60 mL/min (>60); Globulin 2.6 g/dL (1.7-4.1); Glucose 83 mg/dL (70-99); HEMOLYSIS < 15 (0-50); Potassium 4.5 mmol/L (3.4-5.1); Sodium 140 mmol/L (137-145); Total Protein 7.1 g/dL (6.3-8.2)
[2025-04-13 17:19] LABS: Hep C Virus Ab w/Reflex Quant NEGATIVE s/c (NEGATIVE)
== END ==
PROVIDERS: Nurse Practitioner; PCP Nurse Practitioner Family; Referring Provider Internal Medicine; Visit Provider Internal Medicine
DX: I25.10 Atherosclerotic heart disease of native coronary artery without angina pectoris (principal); Z11.59 Encounter for screening for other viral diseases
CPT/HCPCS: 36415; 80053; 83695; 86803